=== PATIENT | female | born 1980 | race Caucasian/White ===

== ENCOUNTER 2021-12-11 18:54 | Emergency (ER) | payer OTHER, SELFPAY ==
[2021-12-11 19:11] VITALS: BP 165/85; PULSE 85; RESP 18; TEMP 37.7; O2SAT 98; BMI 36.6
[2021-12-11 19:55] LABS: MANUAL DIFF FLAG NO
[2021-12-11 19:57] LABS: Basophils Percent Auto 0.4 % (0-2); Eosinophils Absolute Auto 0.3 X10*3/uL (0.0-0.4); Eosinophils Percent Auto 2.6 % (0-4); Hematocrit 40.3 % (37.0-47.0); Hemoglobin 13.8 g/dl (12.0-16.0); Imm Gran Abs Auto 0.06 X10*3/uL (0.00-0.03); Imm Gran Pct Auto 0.6 % (0.0-0.4); Lymphocytes Absolute Auto 2.4 X10*3/uL (1.2-4.9); Lymphocytes Percent Auto 24.2 % (20-40); Mean Corpuscular HGB Conc 34.2 g/dl (31.0-35.0); Mean Corpuscular Hemoglobin 28.4 pg (27.0-33.0); Mean Corpuscular Volume 82.9 fL (80.0-98.0); Mean Platelet Volume 8.6 fL (9.4-12.3); Monocytes Absolute Auto 0.7 X10*3/uL (0.1-1.2); Monocytes Percent Auto 7.4 % (2-11); Neutrophils Absolute Auto 6.5 x10*3/uL (2.0-8.3); Neutrophils Percent Auto 64.8 % (45-73); Platelet Count 272 X10*3/uL (160-400); Red Blood Count 4.86 X10*6/uL (4.20-5.50); Red Cell Distribution Width 12.9 % (11.0-16.0)
[2021-12-11 20:06] LABS: Prothrombin Time 10.8 SEC (9.9-13.0)
[2021-12-11 20:11] LABS: Alanine Aminotransferase 16 U/L (0-31); Albumin Level 3.8 g/dL (3.5-5.0); Alkaline Phosphatase 84 U/L (39-117); Anion Gap 11 (12-20); Aspartate Amino Transferase 15 U/L (5-31); Bilirubin Total 0.2 mg/dL (0.0-1.0); Blood Urea Nitrogen 19 mg/dL (9-16); Calcium 9.3 mg/dL (8.4-10.2); Carbon Dioxide 27 mmol/L (22-29); Chloride 104 mmol/L (96-108); Creatinine Clr Calc Pharmacy 40.4; Estimated Glomerular Filt Rate 31; Glucose Fasting 125 mg/dL (60-99); Potassium 4.5 mmol/L (3.3-5.1); Sodium 137 mmol/L (135-145); Total Protein 7.5 g/dL (6.5-8.0)
--- NOTE | 2021-12-11 20:48 | ED.GENADULT ---
HPI - General Adult General Chief complaint: Extremity Injury, Lower Stated complaint: possible blood clot Time Seen by Provider: 12/11/21 20:48 Source: patient Mode of arrival: ambulatory Limitations: no limitations History of Present Illness HPI narrative: Patient is a 41 year old female presenting to the emergency department today with right ankle pain. Patient states that for the last few days she has had right ankle pain. Patient states that her PCP was concerned for gout or a blood clot and sent her here. Patient states that she has a history of gout in that same extremity. Patient denies any dizziness, lightheadedness, abdominal pain, nausea, vomiting, fever, chills, blurry vision, double vision, loss of vision, chest pain, difficulty breathing, shortness of breath, back pain, night sweats, pain with urination, increased urinary frequency, increased urinary urgency, blood in her urine or stool, syncope or a near syncopal episode, recent trauma or falls, bowel incontinence, bladder incontinence, bowel retention, bladder retention, or any other complaints at this time. Onset (ago): day(s) Location: lower extremity Radiation: non-radiation Severity: mild Severity scale (1-10): 3 Quality: dull Pain Consistency: constant Relieving factors: none Exacerbating factors: none Associated symptoms: denies other symptoms Treatments prior to arrival: none Related Data Home Medications Medication Instructions Recorded Confirmed gcguuwyqjy-ifwrvowuyqxlf-sdzgounu 1 - 2 tab PO DAILY PRN 12/11/21 12/11/21 50 mg-325 mg-40 mg tablet lisinopril 10 mg tablet 12.5 mg PO DAILY 12/11/21 12/11/21 Previous Rx's Medication Instructions Recorded naproxen 500 mg tablet 500 mg PO BID PRN 7 Days #14 tab 12/11/21 Allergies Allergy/AdvReac Type Severity Reaction Status Date / Time Iodinated Contrast Media Allergy Mild SWELLING Unverified 04/17/20 19:09 [IV CONTRAST] Review of Systems Constitutional: Constitutional: Reports no additional constitutional complaints, Denies chills, Denies fever(s) and Denies night sweats Eyes: Eyes: Reports no additional eye complaints, Denies blurry vision, Denies change in vision, Denies diplopia, Denies eye discharge, Denies loss of vision and Denies eye pain ENT: Denies dizziness Cardiovascular: Cardiovascular: Reports no additional cardiovascular complaints, Denies chest pain, Denies lightheadedness, Denies Loss of Consciousness and Denies dyspnea Respiratory: Respiratory: Reports no additional respiratory complaints and Denies dyspnea Gastrointestinal: Gastrointestinal: Reports no additional gastrointestinal complaints, Denies abdominal pain, Denies melena, Denies hematochezia, Denies change in bowel habits and Denies change in stool character Genitourinary: Genitourinary: Denies hematuria, Denies urinary frequency, Denies dysuria, Denies urinary incontinence, Denies urinary hesitancy and Denies urinary urgency Musculoskeletal: Musculoskeletal: Reports no additional musculoskeletal complaints, Denies numbness and Denies tingling Comments: right ankle pain Neurologic: Denies dizziness, Denies loss of vision, Denies numbness and Denies tingling Psychiatric: Psychiatric: Reports no additional psychiatric complaints Endocrine: Endocrine: Reports no additional endocrine complaints Hematologic/Lymphatic: Hematologic/Lymphatic: Reports no additional hematologic/lymphatic complaints Allergic/Immunologic: Allergic/Immunologic: Reports no additional allergic/immunologic complaints [facility] Past Medical History Attestation statement: The following information was validated with the patient. Source: old records reviewed Social History Social History Advance Directives: No Physical Exam ED Vital Signs: Vital Signs - 24 hr 12/11/21 19:11 Temperature 99.9 F Pulse Rate 85 Respiratory Rate 18 Blood Pressure 165/85 H Pulse Oximetry 98 BMI result Body Mass Index 36.6 Const General: cooperative, no acute distress, alert and awake Nutritional Appearance: well nourished Orientation/consciousness: patient oriented x3 Limitations: no limitations [facility] Head: Yes normal to inspection and Yes atraumatic Ears: hearing grossly normal bilaterally and external ears normal General nose exam: Normal external nose present, no nasal discharge noted and no epistaxis Face and sinus: Yes normal facial exam, No abrasion and No laceration Mouth: Normal oral and palatal mucosa present, no drooling and no muffled voice Eyes General: appearance normal, both eyes and all related structures Periorbital: periorbital findings normal Eyelids: Yes eyelids normal Conjunctivae: conjunctivae normal Pupils: Equal, round and reactive pupils present EOM: EOMs intact bilaterally Neck Neck: Yes normal visual inspection, Yes full ROM and Yes no lymphadenopathy Chest Chest palpation & inspection: normal inspection of the chest Resp Effort & Inspection: normal respiratory effort and able to speak in complete sentences Auscultation: clear to auscultation bilaterally GI Inspection: Yes normal to inspection Neuro General: patient oriented x3 and moves all extremities Cranial nerves: Yes Equal, round and reactive pupils present Cognition (Neuro): normal cognition Motor exam (neuro): 5/5 motor strength present throughout Sensory Exam: Normal double simultaneous stimulation for sensation Coordination: xklqek-fx-mffa test normal Extrem General: Yes normal to inspection, Yes full ROM and Yes capillary refill normal Psych Appearance: grossly normal Mental Status: mental status grossly normal Affect: normal affect Attitude: cooperative Thought process: Normal thought process present Thought content: Normal thought content present Insight: Good insight present (Psych) Medical Decision Making MDM Narrative Medical decision making narrative: Patient is a 41 year old female presenting to the emergency department today with right ankle pain. Patient's physical exam was unremarkable. Patient's blood work showed a slightly elevated creatinine but was otherwise normal. I explained my physical exam findings as well as all test results to the patient. I answered all questions asked by the patient. Patient received PO Indomethacin which she stated helped her symptoms significantly. Patient's clinical presentation was most consistent with an acute gout flare. There was no calf pain, redness, or swelling. I stressed the importance of the patient taking her medication as prescribed. I stressed the importance of the patient following up with her primary care provider. I stressed the importance of the patient returning to the emergency department immediately if her symptoms were to worsen or if she were to develop any dizziness, shortness of breath, difficulty breathing, chest pain, blurry vision, loss of vision, nausea, vomiting, abdominal pain, fever, chills, back pain, or any other complaints. Patient verbalized agreement and understanding with this treatment plan and discharge. Differential Diagnosis Differential Diagnosis: gout, sprain Medical Records Medical records reviewed: Yes I reviewed the patient's medical records. Lab Data Lab results reviewed: Yes I reviewed the patient's lab results. Result diagrams: 12/11/21 19:49 12/11/21 19:49 Labs: Lab Results 12/11/21 12/11/21 12/11/21 Range/Units 19:49 19:49 19:49 WBC 10.0 (4.8-10.8) X10*3/uL RBC 4.86 (4.20-5.50) X10*6/uL Hgb 13.8 (12.0-16.0) g/dl Hct 40.3 (37.0-47.0) % MCV 82.9 (80.0-98.0) fL MCH 28.4 (27.0-33.0) pg MCHC 34.2 (31.0-35.0) g/dl RDW 12.9 (11.0-16.0) % Plt Count 272 (160-400) X10*3/uL MPV 8.6 L (9.4-12.3) fL Immature Gran % (Auto) 0.6 H (0.0-0.4) % Neut % (Auto) 64.8 (45-73) % Lymph % (Auto) 24.2 (20-40) % Caroline % (Auto) 7.4 (2-11) % Eos % (Auto) 2.6 (0-4) % Baso % (Auto) 0.4 (0-2) % Lymph # (Auto) 2.4 (1.2-4.9) X10*3/uL Caroline # (Auto) 0.7 (0.1-1.2) X10*3/uL Eos # (Auto) 0.3 (0.0-0.4) X10*3/uL Baso # (Auto) 0.0 (0.0-0.2) X10*3/uL Abs Immat Gran (auto) 0.06 H (0.00-0.03) X10*3/uL Absolute Neuts (auto) 6.5 (2.0-8.3) x10*3/uL Absolute Nucleated RBC 0.000 (0.0-0.012) X10*3/uL Nucleated RBC % (auto) 0.0 (0.0-0.2) /100WBC PT 10.8 (9.9-13.0) SEC INR 1.0 (0.9-1.1) Sodium 137 (135-145) mmol/L Potassium 4.5 (3.3-5.1) mmol/L Chloride 104 (96-108) mmol/L Carbon Dioxide 27 (22-29) mmol/L Anion Gap 11 L (12-20) BUN 19 H (9-16) mg/dL Creatinine 1.81 H (0.5-1.4) mg/dL Estim Creat Clear Calc 40.4 Estimated GFR 31 Fasting Glucose 125 H (60-99) mg/dL Calcium 9.3 (8.4-10.2) mg/dL Total Bilirubin 0.2 (0.0-1.0) mg/dL AST 15 (5-31) U/L ALT 16 (0-31) U/L Alkaline Phosphatase 84 (39-117) U/L Total Protein 7.5 (6.5-8.0) g/dL Albumin 3.8 (3.5-5.0) g/dL Discharge Plan Discharge Clinical Impression: Gout Patient Disposition: Home, Self-Care Instructions: Gout (ED) Prescriptions: New naproxen 500 mg tablet 500 mg PO BID PRN (Reason: pain) 7 Days Qty: 14 0RF No Action azyqgeektp-qvvpgbehlnpvp-mabd 50-325-40 mg tablet 1 - 2 tab PO DAILY PRN (Reason: headache) 0RF lisinopril 10 mg Tablet 12.5 mg PO DAILY 0RF Referrals: [facility] [place] [facility] [place] Group] [facility] [place] [facility] [place] Group] [facility] [place] [facility] [place] Group] Stand Alone Forms: Work/School Release Print Language: Mexican
[2021-12-11] MEDS: Indomethacin 25 MG CAPSULE PO (22:56)
== END 2021-12-11 22:58 | disposition home or self-care (01) ==
PROVIDERS: Emergency Provider Student in an Organized Health Care Education/Training Program
DX: M10.9 Gout, unspecified (principal); R94.4 Abnormal results of kidney function studies
CPT/HCPCS: 36415; 80053; 85025; 85610; 99282; 99283

== ENCOUNTER 2024-07-10 05:32 | Inpatient (IN) | payer OTHER, SELFPAY ==
[2024-07-10] VITALS (14 sets, daily range): BP systolic 112–165; BP diastolic 54–92; PULSE 108–144; RESP 13–28; TEMP 36.4–37; O2SAT 96–100; BMI 37.7; BMI 39.7
--- NOTE | 2024-07-10 | ECG_ITS ---
Test Reason : SOB Blood Pressure : / mmHG Vent. Rate : 131 BPM Atrial Rate : 131 BPM P-R Int : 136 ms QRS Dur : 074 ms QT Int : 318 ms P-R-T Axes : 070 086 035 degrees QTc Int : 469 ms Sinus tachycardia Otherwise normal ECG No previous ECGs available Referred By: Generic ED Physician Electronically Signed By:LUDWIN HURTADO MD
--- NOTE | ~2024-07-10 | XR_ITS ---
EXAMINATION: XR CHEST CLINICAL INFORMATION: Cough. COMPARISON: None available. TECHNIQUE: Frontal view of the chest was obtained. FINDINGS: The lung volumes are low. There is no gross pneumothorax. Heart size is normal. Mild asymmetric elevation of the left lung base with small left pleural effusion. Mild streaky opacities in the lower left lung. Leads overlie the thorax. XR/XR chest 1V IMPRESSION: Mild asymmetric elevation of the left lung base with small left pleural effusion. Mild streaky opacities in the lower left lung. This study was presented today, July 10, 2024, for interpretation. Stat results provided at this time as requested by referring provider. Electronically signed by: Shraddha Haji MD 07/10/2024 09:58 AM [facility]
[2024-07-10 05:58] LABS: MANUAL DIFF FLAG NO
[2024-07-10 06:00] LABS: Basophils Percent Auto 0.4 % (0-2); Eosinophils Absolute Auto 0.2 X10*3/uL (0.0-0.4); Hematocrit 36.3 % (37.0-47.0); Hemoglobin 12.2 g/dl (12.0-16.0); Imm Gran Abs Auto 0.06 X10*3/uL (0.00-0.03); Imm Gran Pct Auto 0.6 % (0.0-0.4); Lymphocytes Absolute Auto 1.6 X10*3/uL (1.2-4.9); Lymphocytes Percent Auto 16.1 % (20-40); Mean Corpuscular HGB Conc 33.6 g/dl (31.0-35.0); Mean Corpuscular Hemoglobin 28.9 pg (27.0-33.0); Mean Platelet Volume 8.7 fL (9.4-12.3); Monocytes Absolute Auto 0.7 X10*3/uL (0.1-1.2); Monocytes Percent Auto 7.6 % (2-11); Neutrophils Absolute Auto 7.1 x10*3/uL (2.0-8.3); Neutrophils Percent Auto 73.3 % (45-73); Platelet Count 199 X10*3/uL (160-400); Red Blood Count 4.22 X10*6/uL (4.20-5.50); Red Cell Distribution Width 12.9 % (11.0-16.0); White Blood Count 9.7 X10*3/uL (4.8-10.8)
[2024-07-10 06:30] LABS: Alanine Aminotransferase 16 U/L (0-31); Albumin Level 3.8 g/dL (3.5-5.0); Alkaline Phosphatase 77 U/L (39-117); Anion Gap 14 (12-20); Aspartate Amino Transferase 18 U/L (5-31); Bilirubin Total 0.4 mg/dL (0.0-1.0); Blood Urea Nitrogen 28 mg/dL (9-16); Calcium 9.1 mg/dL (8.4-10.2); Carbon Dioxide 21 mmol/L (22-29); Chloride 106 mmol/L (96-108); Creatinine Clr Calc Pharmacy 30.7; Estimated Glomerular Filt Rate 23; Glucose Random 135 mg/dL (60-115); Potassium 3.8 mmol/L (3.3-5.1); Sodium 137 mmol/L (135-145); Total Protein 7.2 g/dL (6.5-8.0)
[2024-07-10 06:36] LABS: Influenza A PCR POSITIVE (Negative); Influenza B PCR NEGATIVE (Negative); Resp Syncy Virus RNA Qual PCR NEGATIVE (Negative); SARS COV2 PCR INHOUSE NEGATIVE (Negative)
--- NOTE | 2024-07-10 07:06 | ED_ITS ---
HPI - SOB/Dyspnea General Chief Complaint: Dyspnea Stated Complaint: SOB Time Seen by Provider: 07/10/24 07:01 Source: patient Mode of arrival: EMS Limitations: no limitations History of Present Illness HPI Narrative: This is a 43 years old patient with history of asthma presented to the emergency department via ambulance complaining of shortness a breath, symptoms started yesterday she is coughing wheezing. No fever no chills no vomiting MD elicited complaint: shortness of breath, cough and asthma attack Pertinent past history: asthma Onset (ago): day(s) (1) Timing: constant Severity: moderate Exacerbating factors: nothing Relieving factors: nothing Known history of: asthma Associated symptoms: denies other symptoms Related Data Home oxygen amount: none Home Medications ?Medication ?Instructions ?Recorded ?Confirmed levothyroxine 88 mcg tablet 88 mcg PO DAILY@0600 07/10/24 07/10/24 losartan 50 mg tablet 50 mg PO DAILY 07/10/24 07/10/24 pantoprazole 40 mg tablet,delayed 40 mg PO DAILY@0630 07/10/24 07/10/24 release vitamins no.119-iron 1 tab PO DAILY 07/10/24 07/10/24 fumarate 29 mg-folic acid 1 mg tablet (Se-Aniya-19) Allergies Allergy/AdvReac Type Severity Reaction Status Date / Time Iodinated Contrast Media Allergy Mild SWELLING Verified 07/10/24 07:18 [IV CONTRAST] shellfish derived Allergy Swelling Verified 07/10/24 07:18 Review of Systems 2 Constitutional: Constitutional: Reports no additional constitutional complaints ENT: Reports system reviewed and no additional complaints, except as documented [facility] Past Medical History [facility] Narrative: asthma Social History Social History Household Members: Spouse Housing: House Do you presently have visiting nurse or other home services: No Patient Tobacco Use Status: Never used Tobacco Smoked in Last 30 Days: No Use of substances other than those prescribed or required for medical reasons: No Have you been hit, kicked, punched, or otherwise hurt by someone within the past year? If so, by whom?: No Do you feel safe in your current relationship?: Yes Is there a partner from a previous relationship who is making you feel unsafe now?: No Are you made to feel afraid or neglected: No Christian Healthcare Practices: Rastafarian Advance Directives: No Advance Directives Information Provided: Yes Do you have a plan to hurt others: No Plan Recently lost weight without trying: No Nutrition Risks: Acute nausea or vomiting x1 week Patient : No : No Physical Exam 2 Vital Signs: Vital Signs: Last Vital Signs Temp 98.6 F 07/10/24 14:20 Pulse 115 H 07/10/24 15:28 Resp 20 07/10/24 15:28 BP 134/65 07/10/24 14:20 Pulse Ox 96 07/10/24 14:20 O2 Del Method Room Air 07/10/24 14:20 BMI result Body Mass Index 37.7 tachypneic Const: General: cooperative Nutritional Appearance: average body habitus Orientation/consciousness: patient oriented x3 HEENT: Head: Yes normal to inspection Face and sinus: Yes normal facial exam Neck: Neck: Yes normal visual inspection Chest: Chest palpation & inspection: normal inspection of the chest Resp: Auscultation: rhonchi and wheezes Cardio: Jugular venous distension: no JVD Rate: regular rate Rhythm: r egular rhythm GI: Inspection: Yes normal to inspection Palpation (GI): Soft to palpation, not firm and nontender Auscultation: normal bowel sounds Skin: General skin exam: no rashes or lesions noted and elasticity normal L esions: no lesions Rashes: no rashes Neuro: General: patient oriented x3 Cranial nerves: Yes CN's II-XII intact bilaterally Medications Administered Generic Name Dose Route Start Last Admin Trade Name Freq PRN Reason Stop Dose Admin Albuterol Sulfate 2.5 mg 07/10/24 12:00 07/10/24 15:28 Albuterol Sulfate (0.083%) 2.5 Mg/3 Ml Vial.Neb INHALE 2.5 mg RQ4H WHILE AWAKE CHANELLE Administration Heparin Sodium (Porcine) 5,000 unit 07/10/24 12:15 07/10/24 14:33 Heparin Sodium,Porcine 5,000 Unit/Ml Vial SUBCUT 5,000 unit Q12H CHANELLE Administration Lactated Ringer's 1,000 mls @ 100 mls/hr 07/10/24 12:15 07/10/24 12:11 Lr IVCONT 100 mls/hr .Q10H CHANELLE Administration Discontinued Medications Generic Name Dose Route Start Last Admin Trade Name Freq PRN Reason Stop Dose Admin Albuterol Sulfate 2.5 mg/ 0 mg 07/10/24 07:41 07/10/24 07:45 Albuterol/Ipratropium 3 ml INHALE 07/10/24 07:42 5 dose ONCE ONE Administration Sodium Chloride 1,000 mls @ 999 mls/hr 07/10/24 07:15 07/10/24 09:20 Ns IVCONT 07/10/24 08:15 Infused .Q1H1M CHANELLE Infusion Methylprednisolone Sodium Succinate 125 mg 07/10/24 07:06 07/10/24 07:18 Methylprednisolone Sod Succ 125 Mg/2 Ml Vial IVPUSH 07/10/24 07:07 125 mg ONCE ONE Administration Ondansetron HCl 4 mg 07/10/24 08:28 07/10/24 08:34 Ondansetron Hcl 4 Mg/2 Ml Vial IVPUSH 07/10/24 08:29 4 mg ONCE ONE Administration Oseltamivir Phosphate 75 mg 07/10/24 08:17 07/10/24 08:26 Oseltamivir Phosphate 75 Mg Capsule PO 07/10/24 08:18 75 mg ONCE ONE Administration Medical Decision Making Medical Decision Making [facility] Narrative: pt presented with wheezing will give her nebs /steroid Differential Diagnosis Differential Diagnoses: The differential diagnosis associated with the presentation includes asthma ex/pneumonia/bronchitis Admission/Observation Consideration of admission/observation: Escalation of care including admission/observation considered Lab Data 07/10/24 05:51 07/10/24 05:51 Labs: Lab Results 07/10/24 Range/Units 05:51 WBC 9.7 (4.8-10.8) X10*3/uL RBC 4.22 (4.20-5.50) X10*6/uL Hgb 12.2 (12.0-16.0) g/dl Hct 36.3 L (37.0-47.0) % MCV 86.0 (80.0-98.0) fL MCH 28.9 (27.0-33.0) pg MCHC 33.6 (31.0-35.0) g/dl RDW 12.9 (11.0-16.0) % Plt Count 199 D (160-400) X10*3/uL MPV 8.7 L (9.4-12.3) fL Immature Gran % (Auto) 0.6 H (0.0-0.4) % Neut % (Auto) 73.3 H (45-73) % Lymph % (Auto) 16.1 L (20-40) % Rolette % (Auto) 7.6 (2-11) % Eos % (Auto) 2.0 (0-4) % Baso % (Auto) 0.4 (0-2) % Lymph # (Auto) 1.6 (1.2-4.9) X10*3/uL Rolette # (Auto) 0.7 (0.1-1.2) X10*3/uL Eos # (Auto) 0.2 (0.0-0.4) X10*3/uL Baso # (Auto) 0.0 (0.0-0.2) X10*3/uL Abs Immat Gran (auto) 0.06 H (0.00-0.03) X10*3/uL Absolute Neuts (auto) 7.1 (2.0-8.3) x10*3/uL Absolute Nucleated RBC 0.000 (0.0-0.012) X10*3/uL Nucleated RBC % (auto) 0.0 (0.0-0.2) /100WBC Sodium 137 (135-145) mmol/L Potassium 3.8 (3.3-5.1) mmol/L Chloride 106 (96-108) mmol/L Carbon Dioxide 21 L (22-29) mmol/L Anion Gap 14 (12-20) BUN 28 H (9-16) mg/dL Creatinine 2.37 H (0.5-1.4) mg/dL Estim Creat Clear Calc 30.7 Estimated GFR 23 Random Glucose 135 H (60-115) mg/dL Calcium 9.1 (8.4-10.2) mg/dL Total Bilirubin 0.4 (0.0-1.0) mg/dL AST 18 (5-31) U/L ALT 16 (0-31) U/L Alkaline Phosphatase 77 (39-117) U/L Total Protein 7.2 (6.5-8.0) g/dL Albumin 3.8 (3.5-5.0) g/dL Influenza Type A (PCR) POSITIVE A (Negative) Influenza Type B (PCR) NEGATIVE (Negative) RSV RNA Qual (PCR) NEGATIVE (Negative) SARS-CoV-2 RNA (RT-PCR) NEGATIVE (Negative) Discharge Plan Discharge Clinical Impression: Influenza, DACIA (acute kidney injury) Asthma with exacerbation Qualifiers: Asthma severity: moderate Asthma persistence: persistent Qualified Code(s): J 45.41 - Moderate persistent asthma with (acute) exacerbation Patient Disposition: Admitted As Inpatient
[2024-07-10] MEDS: methylPREDNISolone Sod Succ 125 MG/2 ML VIAL IVPUSH (07:18)
[2024-07-10] MEDS: 0.9 % Sodium Chloride 1,000 ML 999 ML IVCONT (07:18)
[2024-07-10] MEDS: Albuterol Sulfate 2.5 MG, Albuterol/Iprat 2.5/0.5MG 3 ML 3 ML INHALE (07:45)
[2024-07-10] MEDS: Oseltamivir Phosphate 75 MG CAPSULE PO (08:26)
[2024-07-10] MEDS: ondansetron HCL 4 MG/2 ML VIAL IVPUSH (08:34)
--- NOTE | 2024-07-10 11:02 | PM.IMHP ---
History of Present Illness Date of Service: 07/10/24 Attending physician on admission: Queta Orozco Chief Complaint: dyspnea, cough 43 yo female with PMH of HTN, kidney disease- proteinuria (sees Dr. Castellano for this), hypothyroidism, and seasonal asthma who presents for worsening shortness of breath, increased work of breathing and cough. Her symptoms started yesterday but she realized that her inhaler had been , so she tried to rest instead to avoid increasing any shortness of breath. States overnight her symptoms became worse and had a coughing fit, says she became increasingly anxious which made everything worse and it prompted her mor to call EMS. Indicates a potential sick contact, mor's 4 yo daughter was over this weekend with a cough. Denies any fevers, chills, N/V/D, or CP, but endorses palpitations when she is having coughing fits or with steroid medicines. Cough is non productive, denies hemoptysis, diaphoresis, or edema. Review of Systems Constitutional: Comments: Denies fatigue, unintentional weight loss, denies fever, chills, N/V/D. Denies changes to sleep. ENT: Comments: Denies headache, changes to vision or hearing, and denies vertigo, rhinorrhea, or sore throat. Endorses chest congestion Cardiovascular: Comments: Endorses symptomatic palpitations with coughing attacks. Denies lightheadedness, diaphoresis, orthopnea, edema, or CP Respiratory: Comments: Endorses non-productive cough, dyspnea, and wheeze. Denies hemoptysis, or pleuritic pain Gastrointestinal: Comments: denies N/V/D, denies bowel changes or constipation, no changes to appetite, and denies any bleeding Genitourinary: Comments: denies any urinary changes or difficulties, denies frequency, urgency, retention, pain/burning, or hematuria Musculoskeletal: Comments: denies back pain, or swelling of any joints, denies any recent falls Integumentary/Breasts: Comments: denies any rashes, itching, dryness, color changes, wounds Neurologic: Comments: denies seizures, dizziness, syncope/fainting, numbness/tingling or tremors Psychiatric: Comments: Denies anxiety, depression, or any changes to memory Endocrine: Comments: denies temperature intolerances, sweating, polyuria/dipsia, or bleeding. [facility] Social History Household Members: Spouse Housing: House Do you presently have visiting nurse or other home services: No Patient Tobacco Use Status: Never used Tobacco Use of substances other than those prescribed or required for medical reasons: No Have you been hit, kicked, punched, or otherwise hurt by someone within the past year? If so, by whom?: No Do you feel safe in your current relationship?: Yes Is there a partner from a previous relationship who is making you feel unsafe now?: No Are you made to feel afraid or neglected: No [facility] Practices: Holiness Advance Directives: No Advance Directives Information Provided: Yes Do you have a plan to hurt others: No Plan Recently lost weight without trying: No Patient : No : No Meds Allergies Allergy/AdvReac Type Severity Reaction Status Date / Time Iodinated Contrast Media Allergy Mild SWELLING Verified 07/10/24 07:18 [IV CONTRAST] shellfish derived Allergy Swelling Verified 07/10/24 07:18 Active Medications: Current Medications Acetaminophen (Acetaminophen 325 Mg Tablet) 650 mg PO Q6H PRN PRN Reason: Pain, Mild (Pain Scale 1-3), fever or headache Albuterol Sulfate (Albuterol Sulfate (0.083%) 2.5 Mg/3 Ml Vial.Neb) 2.5 mg INHALE RQ4H WHILE AWAKE CHANELLE Calcium Carbonate (Calcium Carbonate 750 Mg Tab.Chew) 750 mg PO Q4H PRN PRN Reason: Heartburn Magnesium Hydroxide (Milk Of Magnesia 30 Ml Oral.Susp) 30 ml PO DAILY PRN PRN Reason: Constipation Melatonin (Melatonin 3 Mg Tablet) 6 mg PO BEDTIME PRN PRN Reason: Insomnia Methylprednisolone Sodium Succinate (Methylprednisolone Sod Succ 40 Mg/Ml Vial) 40 mg IVPUSH Q12H [facility] Sodium Chloride (0.9 % Sodium Chloride Flush 3 Ml Syringe) 3 ml IVFLUSH QSHIFT [facility] Home Medications ?Medication ?Instructions ?Recorded ?Confirmed ?Last Taken ?Type levothyroxine 88 mcg tablet 88 mcg PO DAILY@0600 07/10/24 07/10/24 07/09/24 History losartan 50 mg tablet 50 mg PO DAILY 07/10/24 07/10/24 07/09/24 History pantoprazole 40 mg tablet,delayed 40 mg PO DAILY@0630 07/10/24 07/10/24 07/09/24 History release vitamins no.119-iron 1 tab PO DAILY 07/10/24 07/10/24 07/09/24 History fumarate 29 mg-folic acid 1 mg tablet (Se-Aniya-19) Physical Exam Vital Signs and Narrative: Vital Signs: Last Vital Signs Temp 98.6 F 07/10/24 09:34 Pulse 124 H 07/10/24 09:34 Resp 20 07/10/24 09:34 BP 141/61 H 07/10/24 09:34 Pulse Ox 97 07/10/24 09:34 O2 Del Method Room Air 07/10/24 09:34 BMI result Body Mass Index 37.7 Const: General: cooperative, no acute distress, alert and awake Nutritional Appearance: obese Orientation/consciousness: patient oriented x3 Limitations: physical limitations (SOB OE) HEENT: Head: Yes normal to inspection Ears: hearing grossly normal bilaterally General nose exam: Normal external nose present Mouth: moist mucous membranes Eyes: General: appearance normal, both eyes and all related structures Pupils: Equal, round and reactive pupils present EOM: EOMs intact bilaterally Neck: Yes normal visual inspection and Yes full ROM Resp: Effort & Inspection: able to speak in complete sentences and tachypneic Auscultation: clear to auscultation bilaterally and wheezes expiratory wheezes, upper bilaterally and posterior Cardio: Jugular venous distension: no JVD Rate: tachycardic Rhythm: regular rhythm Heart sounds: S1 normal heart sound present and S2 normal heart sound present Peripheral pulses: dorsalis pedis present GI: Inspection: Yes normal to inspection Auscultation: normal bowel sounds : General: Yes no CVA tenderness Back/Spine/Pelvis: Back: no CVA tenderness Skin: General skin exam: no rashes or lesions noted, elasticity normal and turgor normal Wounds: no wounds Neuro: General: patient oriented x3 Cranial nerves: Yes CN's II-XII intact bilaterally, Yes Equal, round and reactive pupils present and Yes Bilaterally intact EOM present Cognition (Neuro): normal cognition Motor exam (neuro): 5/5 motor strength present throughout Psych: Appearance: grossly normal Mental Status: mental status grossly normal Speech and movement: Normal speech and movement present Affect: normal affect Attitude: cooperative Thought process: Normal thought process present Results Labs 07/10/24 05:51 07/10/24 05:51 Labs: Laboratory Results - last 24 hr 07/10/24 05:51 MCV 86.0 MCH 28.9 MCHC 33.6 RDW 12.9 Plt Count 199 D MPV 8.7 L Immature Gran % (Auto) 0.6 H Neut % (Auto) 73.3 H Lymph % (Auto) 16.1 L [place] % (Auto) 7.6 Eos % (Auto) 2.0 Baso % (Auto) 0.4 Lymph # (Auto) 1.6 [place] # (Auto) 0.7 Eos # (Auto) 0.2 Baso # (Auto) 0.0 Abs Immat Gran (auto) 0.06 H Absolute Neuts (auto) 7.1 Absolute Nucleated RBC 0.000 Nucleated RBC % (auto) 0.0 Anion Gap 14 Estim Creat Clear Calc 30.7 Estimated GFR 23 Random Glucose 135 H Calcium 9.1 Total Bilirubin 0.4 AST 18 ALT 16 Alkaline Phosphatase 77 Total Protein 7.2 Albumin 3.8 Influenza Type A (PCR) POSITIVE A Influenza Type B (PCR) NEGATIVE RSV RNA Qual (PCR) NEGATIVE SARS-CoV-2 RNA (RT-PCR) NEGATIVE Imaging Radiologist's Impressions: Impressions Chest X-Ray 07/10/24 07:05 IMPRESSION: Mild asymmetric elevation of the left lung base with small left pleural effusion. Mild streaky opacities in the lower left lung. This study was presented today, July 10, 2024, for interpretation. Stat results provided at this time as requested by referring provider. Electronically signed by: Shraddha Haji MD 07/10/2024 09:58 AM [facility] Assessment and Plan (1) DACIA (acute kidney injury): Status: Acute (2) Influenza: Status: Acute (3) Asthma with exacerbation: Qualifiers: Asthma persistence: persistent Asthma severity: moderate Qualified Code(s): J45.41 - Moderate persistent asthma with (acute) exacerbation Status: Acute Plan 43 yo female with PMH of HTN, kidney disease- proteinuria (sees Dr. Castellano), hypothyroidism, and seasonal asthma who presents for worsening shortness of breath, increased work of breathing and non-productive cough. Influenza A+ tamiflu, renally dosed antipyretics PRN hydration encouraged Acute asthma exacerbation secondary to influenza CXR showed Mild asymmetric elevation of the left lung base with small left pleural effusion. Mild streaky opacities in the lower left lung. EKG, sinus tachycardia Oxygen supplementation as required, goal >90% Bronchodilators. Solumedrol DACIA hx of proteinuria ? hypovolemia IVF resuscitation check ua nephro consultation Hypothyroidism continue levothyroxine HTN hold losartan for DACIA Obesity, morbid 37.7 Discussed importance of weight management as this may be contributing to worsening of other comorbidities Code status: Full DVT: heparin subcu Quality Stroke Does the patient have a stroke diagnosis?: No VTE Prior VTE?: No VTE Risk Level:: Medical - moderate - high VTE Device Contraindication: Treatment Not Indicated VTE Drug Contraindication: N/A - Med Ordered
[2024-07-10] MEDS: Lactated Ringers 1,000 ML 100 ML IVCONT ×2 (12:11→22:10)
--- NOTE | 2024-07-10 12:36 | PHA.MEDREC ---
Pharmacy Consult ? Medication Reconciliation Pharmacy has completed the medication reconciliation, spoke to patient at bedside to confirm all medications. Patient named off first two meds and confirmed pantoprazole and a vitamin when prompted with the name, also stated she takes nothing OTC, last took yesterday on 07/09.
[2024-07-10] MEDS: Albuterol Sulfate (0.083%) 2.5 MG/3 ML VIAL.NEB INHALE ×3 (13:01→19:05)
[2024-07-10] MEDS: Heparin Sodium,Porcine 5,000 UNIT/ML VIAL 5000 UNIT SUBCUT ×2 (14:33→23:58)
[2024-07-10 14:55] LABS: Appearance Urine Clear; Color Urine Yellow; Glucose Urine UA 100 mg/dL (Negative); Leukocyte Esterase Urine Small (1+) (Negative); Nitrite Urine Negative (Negative); PH 5.5 (5.0-9.0); UMIC TRIGGER UACC YES; Urine Blood Trace (Negative); Urine Ketones Trace mg/dL (Negative); Urine Protein >=1000 (4+) mg/dL (Neg-Trace)
[2024-07-10 15:04] LABS: Bacteria Urine Trace (None Seen); RBC Urine 0-2 /HPF (0-2); UACC Culture Trigger YES; WBC Urine 21-50 /HPF (0-5)
[2024-07-10] MEDS: 0.9 % Sodium Chloride Flush 3 ML SYRINGE IVFLUSH ×2 (17:15→22:12)
[2024-07-10] MEDS: Acetaminophen 325 MG TABLET 650 MG PO (20:11)
[2024-07-10] MEDS: Oseltamivir Phosphate 30 MG CAPSULE PO (20:34)
[2024-07-11 04:00] VITALS: BP 135/64; PULSE 98; RESP 18; TEMP 37.3; O2SAT 97
[2024-07-11] MEDS: Levothyroxine Sodium 88 MCG TABLET PO (06:16)
[2024-07-11 07:16] LABS: Anion Gap 14 (12-20); Blood Urea Nitrogen 32 mg/dL (9-16); Carbon Dioxide 19 mmol/L (22-29); Chloride 110 mmol/L (96-108); Creatinine Clr Calc Pharmacy 33.4; Estimated Glomerular Filt Rate 24; Glucose Random 117 mg/dL (60-115); Potassium 4.6 mmol/L (3.3-5.1); Sodium 138 mmol/L (135-145)
[2024-07-11 08:00] VITALS: BP 133/67; PULSE 103; RESP 18; TEMP 36.6; O2SAT 97
[2024-07-11] MEDS: Albuterol Sulfate (0.083%) 2.5 MG/3 ML VIAL.NEB INHALE ×2 (08:03→11:31)
[2024-07-11 08:05] VITALS: PULSE 104; RESP 18; O2SAT 97
[2024-07-11] MEDS: Lactated Ringers 1,000 ML 100 ML IVCONT (08:36)
[2024-07-11] MEDS: Oseltamivir Phosphate 30 MG CAPSULE PO (08:38)
[2024-07-11] MEDS: methylPREDNISolone Sod Succ 40 MG/ML VIAL IVPUSH (08:38)
[2024-07-11] MEDS: guaiFENesin DM 200/20/10 ML 10 ML SYRUP PO (08:38)
--- NOTE | 2024-07-11 09:49 | PM.DS ---
DS: Providers Provider Date of Service: 07/11/24 Date of admission: 07/10/24 09:40 Date of discharge: 07/11/24 Primary care physician: Pedro Del Castillo PA-C DS: Diagnosis Discharge Diagnosis (1) DACIA (acute kidney injury): Status: Acute (2) Influenza: Status: Acute (3) Asthma with exacerbation: Status: Acute DS: Summary Hospital Course Hospital Course: History and physical as per admitting provider. 43 yo female with PMH of HTN, kidney disease- proteinuria (sees Dr. Castellano for this), hypothyroidism, and seasonal asthma who presents for worsening shortness of breath, increased work of breathing and cough. Her symptoms started yesterday but she realized that her inhaler had been , so she tried to rest instead to avoid increasing any shortness of breath. States overnight her symptoms became worse and had a coughing fit, says she became increasingly anxious which made everything worse and it prompted her mor to call EMS. Indicates a potential sick contact, mor's 4 yo daughter was over this weekend with a cough. Denies any fevers, chills, N/V/D, or CP, but endorses palpitations when she is having coughing fits or with steroid medicines. Cough is non productive, denies hemoptysis, diaphoresis, or edema. 43-year-old woman treated for acute asthma exacerbation secondary to influenza A. Chest x-ray did not know any consolidation or effusion. EKG showed sinus rhythm. Patient did not require any oxygen. Treated with bronchodilators and IV steroids and Tamiflu that was renally dosed. She was also noted to have mild DACIA with a history of proteinuria. Patient reports last creatinine in May was 2.31 so she appears to be at her baseline at this time. She should follow up with her Nephrology as needed. Plan is to discharge home on short prednisone taper and to complete Tamiflu. Hypothyroidism. Continue levothyroxine Hypertension. Continue losartan Obesity. BMI 37.7. Discussed importance of weight management as this may be contributing to worsening of other comorbidities Time Attestation Discharge Coordination Time (in mins): 40 Quality: Safe Use of Opioids Does Pt have an Active Cancer Diagnosis on the Problem List?: No Quality: Stroke Does the patient have a stroke diagnosis?: No Physical Exam Vital Signs: Vital Signs: Last Vital Signs Temp 97.8 F 07/11/24 08:00 Pulse 104 H 07/11/24 08:05 Resp 18 07/11/24 08:05 BP 133/67 07/11/24 08:00 Pulse Ox 97 07/11/24 08:00 O2 Del Method Room Air 07/11/24 08:00 BMI result Body Mass Index 39.7 Appearing in no acute distress head is normocephalic atraumatic eyes pupils are PERRLA sclera is anicteric mouth throat mucous membranes are intact and moist neck is supple no lymphadenopathy, no JVD noted lung sounds are clear to auscultation heart regular rate rhythm, clear S1, S2 positive bowel sounds, abdomen is soft, nontender neuro patient is alert x3, no focal deficits DS: Data Data Completed and Pending Labs on day of discharge: Laboratory Results - last 24 hr 07/10/24 07/11/24 14:47 05:43 Hold Purple Top SEE NOTE Sodium 138 Potassium 4.6 D Chloride 110 H Carbon Dioxide 19 L Anion Gap 14 BUN 32 H Creatinine 2.24 H Estim Creat Clear Calc 33.4 Estimated GFR 24 Random Glucose 117 H Calcium 9.0 Urine Color Yellow Urine Appearance Clear Urine pH 5.5 Ur Specific [place] 1.020 Urine Protein >=1000 (4+) H Urine Glucose (UA) 100 H Urine Ketones Trace Urine Blood Trace H Urine Nitrite Negative Ur Leukocyte Esterase Small (1+) H Urine RBC 0-2 Urine WBC 21-50 H Ur Squamous Epith Cells 6-10 Urine Bacteria Trace Hyaline Casts 6-10 Discharge Plan Discharge Anticipated Discharge Date/Time: 07/11/24 09:44 Patient Disposition: Home, Self-Care Discharge Diagnosis: Acute asthma exacerbation Influenza a Referrals: Pedro Del Castillo PA-C [Primary Care Provider] - 1 Week Discharge Medications: New prednisone 10 mg tablet See Taper PO DIRECTED Qty: 20 0RF Taper: Prednisone 40 mg daily for 2 Days and 0 Hour 30 mg daily for 2 Days and 0 Hour 20 mg daily for 2 Days and 0 Hour 10 mg daily for 2 Days and 0 Hour Rx Instructions: see taper instructions albuterol sulfate [Ventolin HFA] 90 mcg/actuation HFA aerosol inhaler 1 inh inhalation QID PRN (Reason: shortness of breath or wheezing) Qty: 6.7 0RF oseltamivir [Tamiflu] 30 mg capsule 30 mg PO BID 4 Days Qty: 8 0RF albuterol sulfate 2.5 mg /3 mL (0.083 %) solution for nebulization 2.5 mg inhalation Q4H PRN (Reason: bronchospasm) Qty: 180 0RF Continued losartan 50 mg tablet 50 mg PO DAILY levothyroxine 88 mcg tablet 88 mcg PO DAILY@0600 pantoprazole 40 mg tablet,delayed release (DR/EC) 40 mg PO DAILY@0630 Se--19 29 mg iron- 1 mg tablet 1 tab PO DAILY Discontinued albuterol 90 mcg/actuation Aerosol INHALATION PRN (Reason: Shortness Of Breath) Discharge Orders: Discharge Order (Routine); Ordered 07/11/24 Ordered By: Queta Orozco Diet: Advance to usual diet Activity on Discharge: As tolerated Stand Alone Forms: Patient Portal Discharge page, Work/School Release Print Language: Gabonese Care Plan Goals: Complete steroid taper Health Concerns: Acute asthma exacerbation Influenza a Plan of Treatment: Follow-up with primary care provider as needed Take all medications as prescribed Assessment: See discharge summary Patient Instructions: Influenza (DC) Discharge Date/Time: 07/11/24 12:41
[2024-07-11 11:33] VITALS: PULSE 105; RESP 16; O2SAT 97
--- NOTE | 2024-07-11 12:26 | MHC.CM.PN ---
Patient was discharged to home self care today. She arranged for transportation home. The patient was discharged prior to being seen by case management.
--- NOTE | 2024-07-11 12:29 | P.CDIM_ITS ---
PROVIDER RESPONSE TEXT: To clarify, the appropriate diagnosis supported by the clinical indicators: Mild intermittent QUERY TEXT: PHYSICIAN'S DOCUMENTATION REQUEST Date of Query: 07/11/2024 09:57 AM EST Patient Name: Catherine Hardy Admit Date: 07/10/2024 Dear Queta Orozco ORDER MANAGER, A review of the medical record indicates additional documentation may be needed. Please review below and update the documentation accordingly. Clinical indicators: Acute asthma exacerbation secondary to influenza A+ Oxygen supplementation as required Bronchodilators. Solumedrol. Based on the above, please clarify in the Progress Notes further specificity regarding the type of as thma exacerbation within the body of the written Plan: Mild intermittent Mild persistent Moderate persistent Severe persistent Other (explain) Clinically unable to determine (explain) Thank you, Mica Brock, CCS, CDIS Use of terms such as suspected, likely, concern for, or probable (associated with a specific diagnosi s that is being evaluated, monitored, or treated as if it exists) are acceptable and can be coded in the inpatient se tting, when documented at the time of discharge. Please use your independent medical judgment in providing your response. THIS QUERY IS PART OF THE PERMANENT MEDICAL RECORD
--- OUTSIDE RECORDS SUMMARY | 2024-07-11 18:32 | XMS_ITS | Data Portability ---
Author Organization LEO Gunn [facility], [address] Address [address] [place] [address] Care Team Providers [employer] Name Role Phone JOSE HURST Primary Care Provider Assessment No assessment recorded. Plan of Treatment Reminders Order Date Submit Date Provider Last Modified By Organization Details Last Modified Time Details Appointments None recorded. Lab rapid strep group A, throat 2022 023 [place] [address] [facility], [address] [place] [address], [phone], 3 11:46:55 rapid SARS CoV 2 Ag, QL IA, respiratory specimen 2022 023 [place] [address] [facility], [address] [place] [address], [phone], 3 13:57:21 Referral None recorded. Procedures None recorded. Surgeries None recorded. Imaging None recorded. Medication Orders albuterol sulfate 2.5 mg/3 mL (0.083 %) solution for nebulizatio n 2022 023 [facility]ANY [id number], [address], [place], [phone], 3 11:47:10 amoxicillin 875 mg-potassiu m clavulanate 125 mg tablet [email or web address] [place] [address] [facility] #[id number], [address], [place], [phone], 3 14:38:04 benzonatate 100 mg capsule 2022 023 [email or web address] [facility] #50261, [address] [place], [place], [phone], 3 13:30:19 prednisone 20 mg tablet 2022 023 [email or web address] [facility] #88625, [address] [place], [place], [phone], 3 13:30:28 Patient TargetsNo targets recorded. Patient Instructions Encounter Date Encounter Id Patient Instructions Last Modified By Organization Details Last Modified Time 09/07/2022 [id number] Acute bronchitis is a common clinical condition characterized by an acute onset but persistent cough, with or without sputum production. It is typically self-limited, resolving within one to three weeks. Symptoms result from inflammation of the lower respiratory tract and are most frequently due to viral infection. Treatment is focused on patient education and supportive care. Antibiotics are not needed for the great majority of patients with acute bronchitis but are greatly overused for this condition. Reducing antibiotic use for acute bronchitis is a national and international health care priority. In most patients, the cough persists for 1 to 3 weeks, with a average duration of 18 days. The cough may be associated with either purulent or nonpurulent sputum production The presence of purulent sputum is a nonspecific finding and does not appear to be predictive of bacterial infection or that antibiotics are needed. For the great majority of patients, use of antibiotics does not hasten recovery or prevent complications but puts patients at increased risk of adverse effects including potentially severe complications such as Clostridioides difficile infection and anaphylaxis. Non-Pharmacological treatment for coughin. Throat lozenges 2. Hot tea 3. Honey 4. Smoking cessation 5. Avoidance of secondhand smoke. Pharmacological Treatment: 1. Robatussin or Guafenasin 2. Antihistamines 3. Dextromethoraphen I would plan on being seen again if any of the following symptoms develop: 1. Fever (100.5) 2. Shortness of breath 3. Wheezing 4. Worsening Cough. I would go to the ER if you develop: 1. Severe Shortness of breath 2. Chest Pain 3. Wheezing 4. Coughing up Blood Not available 09/07/2022 11:46:40 10/16/2022 [id number] cough: care instructions [email or web address] Not available 10/16/2022 16:04:55 Reason for Referral None Reported. Results Created Date Observation Date Name Description Value Unit Range Abnormal Flag Note LastModifiedBy Organization Detail LastModifiedTime 09/07/19 23 09/07/2022 rapid strep group A, throa t Unknown Analyte Normal = Negati ve Not Available [address] [place] [address], [phone], 09/07/2022 11:13:52 09/07/1909/07/2022 rapid strep group A, throa t Unknown Analyte negati ve Not Available [address] [place] [address], [phone], 09/07/2022 11:13:52 11/15/19 23 11/14/2022 rapid SARS CoV 2 Ag, QL IA, respi rator y speci men Unknown Analyte Normal =Negat haris Not Available [address] [place] [address], [phone], 11/14/2022 13:31:23 11/15/19 23 11/14/2022 rapid SARS CoV 2 Ag, QL IA, respi rator y speci men Unknown Analyte negati ve Not Available [address] [place] [address], [phone], 11/14/2022 13:31:23 Result Notes None recorded. Problems Name Problem SNOMED Code Status Onset Date Resolution Date Notes Provider Name and Address Organization Details Recorded Time Asthma 906854324 Active 2022 [facility] 3 11:16:30 Hypothyroidism 52584713 Active 2022 [facility] 3 11:16:36 Proteinuria 02333411 Active 2022 [facility] 3 11:16:46 Gastroesophage al reflux disease 543067564 Active 2022 LE[facility] 3 11:17:01 Problem Notes None recorded. Medical Equipment None Reported. Allergies Allergen ID Allergen Name Allergen Category Reaction Reaction Severity Criticality Documentation Date Start Date Code Code System Note Provider Name and Address Organization Details Recorded Time 410557 iodine medicatio n itching Not available Not available 09/07/2022 5933 RxNorm LEO Marro[facility] 3 11:14:59 Medications Name Sig Start Date Stop Date Status Note LastModified by Organization Details LastModified Time prednisone 10 mg tablet 09/07 completed Not Available Not Available Not Available albuterol sulfate 2.5 mg/3 mL (0.083 %) solution for nebulizatio n USE 3 ML VIA NEBULIZER EVERY 4 HOURS active Not Available Not Available No t Available prednisone 20 mg tablet TAKE 3 TABLETS BY MOUTH EVERY DAY IN THE MORNING FOR 5 DAYS 11/14 completed Not Available Not Available Not Available sumatriptan 50 mg tablet TAKE 1 TABLET BY MOUTH 2 HOURS BETWEEN DOSES NEEDED active Not Available Not Available No t Available topiramate 25 mg tablet TAKE 1 TABLET BY MOUTH AT BEDTIME active Not Available Not Available No t Available butalbital- acetaminoph en-caffeine 50 mg-325 mg-40 mg tablet TAKE 1 TO 2 TABLETS BY MOUTH EVERY DAY NEEDED FOR HEADACHE 09/07 completed Not Available Not Available Not Available levothyroxi ne 25 mcg tablet TAKE 1 TABLET BY MOUTH DAILY active Not Available Not Available No t Available benzonatate 100 mg capsule TAKE 1 CAPSULE BY MOUTH EVERY DAY AT BEDTIME FOR 7 DAYS 11/14 completed Not Available Not Available Not Available pantoprazol e 40 mg tablet,ezekiel yed release TAKE 1 TABLET BY MOUTH DAILY active Not Available Not Available No t Available losartan 25 mg tablet TAKE 1/2 TABLET BY MOUTH DAILY active Not Available Not Available No t Available albuterol sulfate HFA 90 mcg/actuati on aerosol inhaler INHALE 2 PUFFS INTO THE LUNGS FOUR TIMES DAILY NEEDED FOR COUGH OR WHEEZING active Not Available Not Available No t Available naproxen 500 mg tablet TAKE 1 TABLET BY MOUTH TWICE DAILY FOR 7 DAYS NEEDED FOR PAIN 09/07 completed Not Available Not Available Not Available amoxicillin 875 mg-luca orantes clavulanate 125 mg tablet TAKE 1 TABLET BY MOUTH TWICE DAILY FOR 7 DAYS 10/16 completed Not Available Not Available Not Available ProChamber USE DIRECTED active Not Available Not Available No t Available BinaxNOW COVID-19 Ag Self Test kit FOLLOW PACKAGE DIRECTION S 10/16 completed Not Available Not Available Not Available Vitals Date Recorded Body height Body mass index (BMI) Body weight Oxygen saturation Oxygen saturation in Arterial blood by Pulse oximetry Heart rate Respiratory rate Body temperature Systolic blood pressure Diastolic blood pressure Provider Name and Address Organization Details Last Updated DateTime 3 152.4 cm 35.2 kg/m2 42601.6 3 g 98 % 98 % 86 /min 20 /min 98.3 [degF] 138 mm[Hg] 92 mm[Hg] Terra BAILEY - [facility] 3 14:40:11 Date Recorded Body height Body mass index (BMI) Body weight Respiratory rate Oxygen saturation Oxygen saturation in Arterial blood by Pulse oximetry Heart rate Body temperature Systolic blood pressure Diastolic blood pressure Provider Name and Address Organization Details Last Updated DateTime 3 152.4 cm 34.2 kg/m2 68624.6 6 g 18 /min 99 % 99 % 73 /min 98.6 [degF] 124 mm[Hg] 83 mm[Hg] GARTH BAILEY - [facility] 3 13:32:08 Date Recorded Body height Body mass index (BMI) Body weight Respiratory rate Oxygen saturation Oxygen saturation in Arterial blood by Pulse oximetry Heart rate Body temperature Systolic blood pressure Diastolic blood pressure Provider Name and Address Organization Details Last Updated DateTime 3 152.4 cm 35.2 kg/m2 02341.6 3 g 18 /min 98 % 98 % 95 /min 97.8 [degF] 133 mm[Hg] 89 mm[Hg] GARTH BAILEY - [facility] 3 11:18:31 Social History Question Answer Notes LastModified by Organizat ion Details LastModified Time Tobacco Smoking Status Never Smoker GARTH RICHARD null, [place] - [facility] 09/07/2022 11:17:18 What Is Your Level Of Alcohol Consumption? None [email or web address] Information not available 09/07/2022 Have You Had Direct Contact, Or Contact During Intimacy, With Monkeypox Rash, Scabs, Or Body Fluids From A Person With Monkeypox? No [email or web address] Information not available 09/07/2022 Do You Use Any Illicit Or Recreational Drugs? No [email or web address] Information not available 09/07/2022 Have You Recently Traveled Abroad? No [email or web address] Information not available 09/07/2022 Do You Or Have You Ever Used Any Other Forms Of Tobacco Or Nicotine? No [email or web address] Information not available 09/07/2022 Sex: Unknown Functional Status None recorded. Mental Status None recorded. Family History Relationship Description Onset Age of this Age Resolved Age Notes LastModified by Organization Details LastModified Time Father No current problems or disability [email or web address] Not available 09/07 11:17:02 Mother No current problems or disability [email or web address] Not available 09/07 11:17:02 Medical History No medical history recorded. Gynecological HistoryNo gynecological history recorded. Obstetrics History GPAL:G 0 P 0 0 0 0 Immunizations Vaccine Type Date Status Note Provider Nam e and Address Organization Details Recorded Time COVID-19, mRNA, LNP-S, PF, 30 mcg/0.3 mL dose 2 completed Terra [place] null, [place] - [facility] 10/16/2022 14:37:55 COVID-19, mRNA, LNP-S, PF, 30 mcg/0.3 mL dose 1 completed Terra [place] null, PA - [facility] 10/16/2022 14:37:55 COVID-19, mRNA, LNP-S, PF, 30 mcg/0.3 mL dose 1 completed Terra [place] null, PA - [facility] 10/16/2022 14:37:55 Influenza, split virus, trivalent, preservative 1 completed Terra Lei null, [place] - [facility] 10/16/2022 14:37:55 Influenza, split virus, quadrivalent, PF 01/21/202 1 completed LEO Oliveira - [facility] 10/16/2022 14:37:55 Past Encounters Encounter ID Performer Location Encounter Start Date Encounter Closed Date Diagnosis/Indication Diagnosis SNOMED-CT Code Diagnosis ICD10 Code [id number] [address] [facility] [place] [address] 01/31/2021 14:30:54 01/31/2021 15:10:06 [id number] [address] [facility] [place] [address] 07/10/2016 11:15:03 07/10/2016 12:08:04 [id number] [address] [place] [address] [place] [address] 03/31/2022 17:56:56 03/31/2022 18:44:56 [id number] [address] [place] [address] [place] [address] 07/30/2016 17:02:48 07/30/2016 18:39:53 [id number] [address] [facility] [place] [address] 10/02/2019 09:19:13 10/02/2019 09:58:38 [id number] [address] [facility] [address] 07/26/2021 12:55:01 07/26/2021 13:46:20 [id number] [address] [facility] [address] 04/27/2016 13:59:25 04/27/2016 15:43:09 [id number] LEO ZIMMERMAN [address] [facility] [address] 09/07/2022 11:05:46 09/07/2022 11:59:13 Acute pharyngitis 080875333 J02.9 Acute sinusitis 62426887 J01.90 Exacerbati on of intermittent asthma 480730668 J45.21 [id number] RYLAN VASQUEZ MD [address] [place] [address] 10/16/2022 10:33:14 10/16/2022 16:06:33 Reactive airway disease 5259130425 06 J45.909 Postviral cough 87358089 4 R05.3 [id number] LEO ZIMMERMAN [address] [place] [address] 11/14/2022 11:42:09 11/14/2022 14:00:29 Exposure to SARS-CoV-2 620574384 Z20.822 Health Concerns Section Related Observation LastModified by Organization Detai ls LastModified Time None Recorded Concern Status LastModified by Organization Details LastModified Time None Recorded Advance Directives Directive None Recorded Payers Encounter Date Sequence Insurance Name Policy Number Policy Dempsey Covered Member ID Dempsey Member ID Guarantor Name 07/26/2021 1 [facility] [id number] Catherine Hardy [id number] Catherine Hardy 03/31/2022 1 [facility] [id number] Catherine Hardy [id number] Catherine Hardy 09/07/2022 1 [facility] [id number] Catherine Hardy [id number] Catherine Hardy 10/16/2022 1 [facility] [id number] Catherine Hardy [id number] Catherine Hardy 11/14/[address] [place] [address] [id number] Catherine Hardy [id number] Catherine Hardy Notes Date Note Type Note Provider Name and Address Organization Details Recorded Time text/html Sore throatReported bypatient.Source of patient informationInformation obtained from patient; Patient arrived at Urgent Care ambulatory Location:throat Severity:moderate Quality:hurts to swallow Onset/Timin days Associated Symptoms:no sputum production; no shortness of breath; no vomiting; no nausea;wheezing;sore throat;hoarseness;coughing; sinus pain/ congestion Context:sick contactNotes:The patient reports has had congestion for a few days. She reports yesterday much worse, she states that she hears herself wheezing. Has asthma. She states using proair but she doesn't have any medication for her pro-air at this time. The patient states that she feels mild short of breath. The patient has increased sinus pressure and congestion today. No fever. But does ahve a sore throat. COVID test was negative. LEO ZIMMERMAN [address] [place], [address], [employer] [facility] 09/07/2022 12:18:11 3 text/html CoughReported bypatient.source of patient informationInformation obtained from patient; Patient arrived at Urgent Care ambulatory Quality:intermittent Duration:symptoms lasting over 2 weeks Context:non-smoker;history of asthma Associated Symptoms:no fever; no chills; no chest pain; no heartburn; no nausea; no vomiting; no wheezing; no post nasal dripNotes:The patient is here for a COVID test she has been having ongoing issues with chest pain and shortness of breath. 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 She has had this appointment scheduled for the last 4 weeks. Currently just cough and mild shortness of breath. LEO ZIMMERMAN [address] [place], [address], [place] [employer] [facility] 11/14/2022 14:00:02 OBGyn Episode No OBEpisode recorded.
== END 2024-07-11 12:41 | disposition home or self-care (01) | DRG 141 ==
LOC: HO.ED 08:33 → HO.EDOVER 09:48 → HO.S3 19:18
PROVIDERS: Admitting Provider Nurse Practitioner Acute Care; Emergency Provider Emergency Medicine; PCP Physician Assistant; Visit Provider Nurse Practitioner Acute Care
DX: J45.21 Mild intermittent asthma with (acute) exacerbation (principal); N17.9 Acute kidney failure, unspecified; J10.1 Influenza due to other identified influenza virus with other respiratory manifestations; E03.9 Hypothyroidism, unspecified; E86.1 Hypovolemia; E66.01 Morbid (severe) obesity due to excess calories; Z68.37 Body mass index [BMI] 37.0-37.9, adult; Z79.890 Hormone replacement therapy; Z79.899 Other long term (current) drug therapy; Z71.3 Dietary counseling and surveillance
CPT/HCPCS: 0241U; 36415; 71045; 80048; 80053; 81001; 85025; 87086; 93005; 94640; 99285; J1644; J2405; J2919; J7120

== ENCOUNTER → 2024-07-10 05:50 | Outpatient (BNV) | payer OTHER, SELFPAY | PROVIDERS: Admitting Provider Nurse Practitioner Acute Care; Emergency Provider Emergency Medicine; PCP Physician Assistant; Visit Provider Internal Medicine Cardiovascular Disease | DX: R06.00 Dyspnea, unspecified (principal) | CPT/HCPCS: 93010 ==

== ENCOUNTER → 2024-07-10 09:40 | Outpatient (BNV) | payer OTHER, SELFPAY | PROVIDERS: Admitting Provider Nurse Practitioner Acute Care; Emergency Provider Emergency Medicine; PCP Physician Assistant; Visit Provider Nurse Practitioner Acute Care | DX: J11.1 Influenza due to unidentified influenza virus with other respiratory manifestations (principal); J45.41 Moderate persistent asthma with (acute) exacerbation; N17.9 Acute kidney failure, unspecified | CPT/HCPCS: 99222; 99239 ==

== ENCOUNTER 2025-01-13 14:17 | Emergency (ER) | payer OTHER, SELFPAY ==
[2025-01-13] VITALS (7 sets, daily range): BP systolic 129–154; BP diastolic 69–99; PULSE 66–105; RESP 12–18; TEMP 36.1–36.6; O2SAT 98–100; BMI 39.3
--- NOTE | ~2025-01-13 | US_ITS ---
CLINICAL HISTORY: right pelvic pain, ?cyst on CT US pelvis transabdominal and transvaginal with color and duplex Doppler Comparison: CT/SR - CT ABDOMEN PELVIS WO IV CON - 01/13/25 15:13 EDT Findings: Transabdominal scanning performed for overall anatomy. Transvaginal scanning performed for additional detail. LMP: Patient with IUD Anteverted uterus, normal size and echotexture, measuring 6.8 x 4.1 x 4.6 cm. 1 cm fundal fibroid. IUD within the endometrial cavity The right ovary measures, 4.1 x 2.4 x 1.9 cm. Anechoic cyst measuring 2.0 x 1.5 x 1.9 cm Normal color Doppler with normal ovarian arterial and venous spectral tracing, The left ovary measures, 2.4 x 1.5 x 2.2 cm. Normal sonographic appearance left ovary. Normal color Doppler with normal ovarian arterial and venous spectral tracing. Trace free fluid left adnexa No adnexal masses or fluid collections. Impression: 1. Uterus contains an IUD. 1 cm subserosal fundal fibroid anteriorly. 2. Simple cyst right ovary. Normal sonographic appearance left ovary. 3. Normal spectral Doppler interrogation both ovaries. This document has been electronically signed by: Ray Brandon MD on 01/13/2025 18:36:59
--- NOTE | ~2025-01-13 | CT_ITS ---
CLINICAL HISTORY: right flank pain CT abdomen and pelvis without IV or oral contrast Comparison: None Findings: 5 mm pulmonary nodule left lower lobe consider annual follow-up if patient is high-risk No dependent layering pleural effusions. The heart is not enlarged. Faint calcification midpole right kidney may represent milk of calcium in a renal cyst or caliceal diverticulum. No urolithiasis or evidence of obstructive uropathy.Normal distention of the urinary bladder. Evaluation of the liver, spleen, adrenal glands and pancreas demonstrates no lesions. Mild hepatomegaly. Borderline splenomegaly. It should be noted that isodense masses may be obscured in the absence of intravenous contrast. Absent gallbladder. No pathologically enlarged lymph nodes . No ascites demonstrated. Equivocal 3 cm cyst right adnexa pelvic sonogram would be confirmatory. Uterus contains an IUD. No vertebral body compression fractures or spondylolisthesis. No bony destructive lesions. Impression: 1. Faint calcifications midpole right kidney may represent milk of calcium within a renal cyst or caliceal diverticulum or nonobstructing caliceal stone this measures 6 mm. No urolithiasis or evidence of obstructive uropathy. 2. Hepatomegaly. Absent gallbladder correlate with patient's surgical history. 3. Probable cyst right adnexa pelvic sonogram would be confirmatory 4. 5 mm pulmonary nodule left lower lobe Fleischner Society 2017 Guidelines for incidentally detected indeterminate nodules in persons 35 years of age or older. Single Solid Nodules: 5 mm or smaller nodules need no follow-up in low risk, and [address] follow-up is optional in high risk patients. This document has been electronically signed by: Ray Brandon MD on 01/13/2025 16:31:47
--- NOTE | 2025-01-13 14:22 | ED.ABDPAIN ---
HPI - Abdominal Pain General Chief Complaint: Abdominal Pain Stated Complaint: abd pain Time Seen by Provider: 01/13/25 14:48 Source: patient and family () Mode of arrival: ambulatory Limitations: no limitations History of Present Illness ED Provider: ELIZABETH GONZALEZ PA-C HPI narrative: 40 year old female with pmhx significant for nephritis, hypothyroidism, s/p cholecystectomy and asthma who presents for right flank pain since . She describes the pain as sharp and constant. She reports pain began radiating to her right groin this morning. She reports associated dysuria and nausea without vomiting. She reports loose stools, but this is baseline for her. Reports she was sick last week with an upper respiratory infection and prescribed a course of prednisone. She regularly sees her land leasing information clerk at [facility] for management of her nephritis and states she is compliant with her losartan. Denies fever, vomiting, or hematuria. Denies hx of renal stones. Related Data Home Medications ?Medication ?Instructions ?Recorded ?Confirmed levothyroxine 88 mcg tablet 88 mcg PO DAILY@0600 07/10/24 07/10/24 losartan 50 mg tablet 50 mg PO DAILY 07/10/24 07/10/24 pantoprazole 40 mg tablet,delayed 40 mg PO DAILY@0630 07/10/24 07/10/24 release vitamins no.119-iron 1 tab PO DAILY 07/10/24 07/10/24 fumarate 29 mg-folic acid 1 mg tablet (Se-Aniya 19) Previous Rx's ?Medication ?Instructions ?Recorded albuterol sulfate 2.5 mg/3 mL 2.5 mg (3 mL) inhalation Q4H PRN 07/11/24 (0.083 %) solution for nebulization bronchospasm #180 mL albuterol sulfate 90 mcg/actuation 1 inh inhalation QID PRN shortness 07/11/24 aerosol inhaler (Ventolin HFA) of breath or wheezing #6.7 grams oseltamivir 30 mg capsule (Tamiflu) 30 mg PO BID 4 days #8 caps 07/11/24 prednisone 10 mg tablet See Taper PO DIRECTED #20 tabs 07/11/24 Allergies Allergy/AdvReac Type Severity Reaction Status Date / Time Iodinated Contrast Media Allergy Mild SWELLING Verified 01/13/25 14:22 [IV CONTRAST] shellfish derived Allergy Swelling Verified 01/13/25 14:22 Review of Systems Review of Systems Constitutional: No fever, chills, fatigue, night sweats, weight changes ENT/Mouth: No ear pain, hearing loss, nasal congestion, sinus pain, rhinorrhea, sore throat Eyes: No eye pain, swelling, redness, vision changes, discharge Cardio: No chest pain, palpitations, TURNER, orthopnea, peripheral edema Pulm: No SOB, cough, sputum, wheezing, dyspnea, hemoptysis GI: No nausea, vomiting, hematemesis, abdominal pain, diarrhea, constipation, hematochezia, melena, +right lower abd pain : No irregular bleeding, frequency, urgency, hesitancy, hematuria, flank pain, urinary flow changes, urinary incontinence or retention, +right flank pain, +dysuria MSK: No back pain, neck pain, joint pain, myalgias Skin: No lesions, rashes Neuro: No weakness, numbness, paresthesias, LOC, dizziness, headache Psych: No anxiety/panic, depression, SI/HI, AH/VH All other systems reviewed and are negative. [facility] Past Medical History Attestation statement: The following information was validated with the patient. Source: old records reviewed and nursing notes reviewed Social History Social History Household Members: Spouse Housing: House Do you presently have visiting nurse or other home services: No Alcohol intake: never Patient Tobacco Use Status: Never used Tobacco Physical Exam ED Vital Signs: Vital Signs - 24 hr 01/13/25 14:22 01/13/25 14:46 01/13/25 16:21 Temperature 97.8 F Pulse Rate 105 H 96 91 Respiratory Rate 16 18 18 Blood Pressure 150/99 H 154/87 H 135/85 Pulse Oximetry 100 98 99 Oxygen Delivery Method Room Air Room Air Room Air 01/13/25 17:17 01/13/25 18:39 01/13/25 19:33 Temperature 97.8 F 97 F Pulse Rate 77 66 Respiratory Rate 18 12 16 Blood Pressure 129/72 134/69 Pulse Oximetry 99 98 Oxygen Delivery Method Room Air Room Air 01/13/25 20:09 Temperature 97 F Pulse Rate 66 Respiratory Rate 16 Blood Pressure 134/69 Pulse Oximetry 98 Oxygen Delivery Method Room Air BMI result Body Mass Index 39.3 Hypertensive, vitals otherwise WNL General: Well appearing, in no acute distress. Skin: Warm, dry, intact. No rashes or lesions. Head: Normocephalic, atraumatic EENT: Hearing is intact b/l. Conjunctiva clear. PERRLA. EOM intact. Moist mucous membranes.? Cardiac: Chest wall symmetric. RRR Lungs: Normal respiratory effort without accessory muscle use. CTA bilaterally. No rales, rhonchi, or wheezes.? Abdomen: soft, nondistended, only tender to palpation of right lower quadrant with deep palpation. No rebound or guarding. No palpable mass. No CVAT bilaterally. Active bowel sounds x4. Back: No CVA tenderness. No midline spinous or paraspinal tenderness. No step off deformity. Ext: Upper and lower extremities atraumatic, without tenderness, deformity, swelling or erythema. No pitting edema. Neuro: AOx3. Normal speech. Psych: Appropriate mood and affect. Responds appropriately to questions. Course Course Course Narrative: Hilda Sherman APRN This is a rapid medical exam. Deferred additional HPI, ROS, PE to primary provider. 44 yo female with history of nephritis, HTN, hypthyroidism here with complaints of lower back pain since , now radiating to right abdomen with dysuria, +nausea. Will obtain labs, UA, ur preg VSS Reevaluation(s) Reevaluation #1: 1730 -- CBC without leukocytosis or left shift. No anemia. H&H stable. Chemistry without acute electrolyte abnormality requiring intervention. BUN 23 with creatinine 2.39, this appears to be around patient's baseline secondary to nephritis. Creatinine clearance 30.9. Random glucose 128. Urine showing trace leukocyte esterase, 6-10 WBCs, no urine bacteria. No blood. CT abdomen/pelvis shows faint calcifications mid pole right kidney which may represent milk of calcium within a renal cyst or caliceal diverticulum or nonobstructing calcium stone measuring 6 mm. There is no urolithiasis or evidence of obstructive uropathy. Hepatomegaly. Probable cyst to right adnexa measuring approximately 3 cm. There is also a 5 mm pulmonary nodule to left lower lobe with recommendation for repeat CT scan in 12 months. > given right lower back pain wrapping around to right pelvis with evidence of ovarian cyst to right adnexa, will further evaluate this with ultrasound. Patient agreeable. > treated with IV Tylenol and fluids. Still reporting pain. Low-dose IV morphine ordered > patient is stable at the end of my shift. Sign-out given to Argelia BAILEY pending imaging and disposition. Reevaluation #2: I Marsha Duque PA-C have accepted care of the patient at signed out pending imaging and final disposition Transvaginal ultrasound:The right ovary measures, 4.1 x 2.4 x 1.9 cm. Anechoic cyst measuring 2.0 x 1.5 x 1.9 cm Normal color Doppler with normal ovarian arterial and venous spectral tracing, The left ovary measures, 2.4 x 1.5 x 2.2 cm. Normal sonographic appearance left ovary. Normal color Doppler with normal ovarian arterial and venous spectral tracing. Trace free fluid left adnexa No adnexal masses or fluid collections. Impression: 1. Uterus contains an IUD. 1 cm subserosal fundal fibroid anteriorly. 2. Simple cyst right ovary. Normal sonographic appearance left ovary. 3. Normal spectral Doppler interrogation both ovaries. Medical Decision Making Medical Decision Making [facility] Narrative: 40 year old female with pmhx significant for nephritis, hypothyroidism, s/p cholecystectomy and asthma who presents for right flank pain since . Hypertensive, tachycardic, afebrile. She is well-appearing and in no acute distress. On exam, abdomen is soft, nondistended, only tender to palpation of right lower quadrant with deep palpation. No rebound or guarding. No palpable mass. No CVAT bilaterally. Active bowel sounds x4. Differential diagnoses: appendicitis, diverticulitis, diverticulosis, UTI, IUP, constipation Abdominal exam without peritoneal signs. No evidence of acute abdomen at this time. Well appearing. Low suspicion for acute hepatobiliary disease (including acute cholecystitis), acute infectious processes (pneumonia, hepatitis, pyelonephritis, PID, TOA), vascular catastrophe, bowel obstruction or viscus perforation, ovarian cyst/ rupture/ torsion, ectopic. Presentation not consistent with other acute, emergent causes of abdominal pain at this time. Plan: labs, UA, CT AP, pain control, fluids, serial reassessment Differential Diagnosis Differential Diagnoses: The differential diagnosis associated with the presentation includes as above. Lab Data [facility] Lab Attestation statement: I reviewed the patient's lab results. as above 01/13/25 14:46 01/13/25 14:46 Labs: Lab Results 01/13/25 Range/Units 14:46 WBC 10.0 (4.8-10.8) X10*3/uL RBC 4.42 (4.20-5.50) X10*6/uL Hgb 12.6 (12.0-16.0) g/dl Hct 36.1 L (37.0-47.0) % MCV 81.7 (80.0-98.0) fL MCH 28.5 (27.0-33.0) pg MCHC 34.9 (31.0-35.0) g/dl RDW 13.1 (11.0-16.0) % Plt Count 221 (160-400) X10*3/uL MPV 8.7 L (9.4-12.3) fL Immature Gran % (Auto) 0.7 H (0.0-0.4) % Neut % (Auto) 70.1 (45-73) % Lymph % (Auto) 19.4 L (20-40) % [place] % (Auto) 7.4 (2-11) % Eos % (Auto) 1.9 (0-4) % Baso % (Auto) 0.5 (0-2) % Lymph # (Auto) 1.9 (1.2-4.9) X10*3/uL [place] # (Auto) 0.7 (0.1-1.2) X10*3/uL Eos # (Auto) 0.2 (0.0-0.4) X10*3/uL Baso # (Auto) 0.1 (0.0-0.2) X10*3/uL Abs Immat Gran (auto) 0.07 H (0.00-0.03) X10*3/uL Absolute Neuts (auto) 7.0 (2.0-8.3) x10*3/uL Absolute Nucleated RBC 0.000 (0.0-0.012) X10*3/uL Nucleated RBC % (auto) 0.0 (0.0-0.2) /100WBC Sodium 138 (135-145) mmol/L Potassium 4.0 (3.3-5.1) mmol/L Chloride 105 (96-108) mmol/L Carbon Dioxide 23 (22-29) mmol/L Anion Gap 14 (12-20) BUN 23 H (9-16) mg/dL Creatinine 2.39 H (0.5-1.4) mg/dL Estim Creat Clear Calc 30.9 Estimated GFR 22 Random Glucose 128 H (60-115) mg/dL Calcium 9.3 (8.4-10.2) mg/dL Urine Color Yellow Urine Appearance Clear Urine pH 5.5 (5.0-9.0) Ur Specific [place] <= 1.005 (1.005-1.025) Urine Protein 100 (2+) H (Neg-Trace) mg/dL Urine Glucose (UA) 250 H (Negative) mg/dL Urine Ketones Negative (Negative) mg/dL Urine Blood Negative (Negative) Urine Nitrite Negative (Negative) Ur Leukocyte Esterase Trace H (Negative) Urine RBC 0-2 (0-2) /HPF Urine WBC 6-10 H (0-5) /HPF Ur Squamous Epith Cells 6-10 (0-2) /HPF Urine Bacteria None Seen (None Seen) Hyaline Casts 0-2 (0-2) /LPF Urine Test NEGATIVE (NEGATIVE) Independent Interpretation I performed an independent interpretation of an: Ultrasound and CT Scan Interpretation: ct a/p without obstructing ureteral stone Radiology Impression Discussion of test interpretation with radiology: I have reviewed the radiologist's reading. Radiologist Impression: Date of Service: 01/13/25 Procedure(s): CT abdomen pelvis wo IV con Accession Number(s): [id number] cc: Diya Jang MD; Elizabeth Gonzalez~ Report Number: [id number]: Total DLP = 641.00 mGy-cm CLINICAL HISTORY: right flank pain CT abdomen and pelvis without IV or oral contrast Comparison: None Findings: 5 mm pulmonary nodule left lower lobe consider annual follow-up if patient is high-risk No dependent layering pleural effusions. The heart is not enlarged. Faint calcification midpole right kidney may represent milk of calcium in a renal cyst or caliceal diverticulum. No urolithiasis or evidence of obstructive uropathy.Normal distention of the urinary bladder. Evaluation of the liver, spleen, adrenal glands and pancreas demonstrates no lesions. Mild hepatomegaly. Borderline splenomegaly. It should be noted that isodense masses may be obscured in the absence of intravenous contrast. Absent gallbladder. No pathologically enlarged lymph nodes . No ascites demonstrated. Equivocal 3 cm cyst right adnexa pelvic sonogram would be confirmatory. Uterus contains an IUD. No vertebral body compression fractures or spondylolisthesis. No bony destructive lesions. Impression: 1. Faint calcifications midpole right kidney may represent milk of calcium within a renal cyst or caliceal diverticulum or nonobstructing caliceal stone this measures 6 mm. No urolithiasis or evidence of obstructive uropathy. 2. Hepatomegaly. Absent gallbladder correlate with patient's surgical history. 3. Probable cyst right adnexa pelvic sonogram would be confirmatory 4. 5 mm pulmonary nodule left lower lobe Fleischner Society 2017 Guidelines for incidentally detected indeterminate nodules in persons 35 years of age or older. Single Solid Nodules: 5 mm or smaller nodules need no follow-up in low risk, and [address] follow-up is optional in high risk patients. Independent Historian Clinical information obtained from an independent historian. History obtained from or confirmed by: Spouse External Record Review External record reviewed: Inpatient record Prescription Management I considered prescription management with: Pain Medication Chronic Conditions Patient?s care impacted by: Other (nephritis) Social Determinants Patient?s care significantly limited by Social Determinants of Health including: Other Social Determinant of Health Medications Administered Discontinued Medications Generic Name Dose Route Start Last Admin Trade Name Freq PRN Reason Stop Dose Admin Sodium Chloride 1,000 mls @ 999 mls/hr 01/13/25 16:00 01/13/25 17:20 Ns IV 01/13/25 17:00 Infused .Q1H1M CHANELLE Infusion Acetaminophen 1,000 mg in 100 mls @ 400 mls/hr 01/13/25 15:54 01/13/25 16:34 Ofirmev IV 01/13/25 16:08 Infused ONCE ONE Infusion Morphine Sulfate 2 mg 01/13/25 17:00 01/13/25 17:17 Morphine Sulfate 2 Mg/Ml Cartridge IVPUSH 01/13/25 17:01 2 mg ONCE ONE Administration Protocol Critical Care Time Critical Care Time Critical Care Time: Yes Total Critical Care Time: 31 Attestation: Critical care time in the amount of 31 minutes has been provided to the patient in terms of direct patient care, frequent reevaluation on IV morphine, review and interpretation of medical data and results, and management of potentially life-threatening conditions. This is all outside of any medical procedures. Discharge Plan Discharge Clinical Impression: Ovarian cyst, Fibroid, uterine Patient Disposition: Home, Self-Care Instructions: Ovarian Cyst (ED), Uterine Fibroids (ED) Additional Instructions: All of your screening labs were normal, the CT scan of the abdomen was normal as well. The transvaginal ultrasound revealed that you have a 1 cm uterine fibroid and a 2 cm ovarian cyst. See home care instructions. You can use [id number] Tylenol 1000 mg taken every 8 hours for your discomfort. The fibroid and the ovarian cyst will be tracked and followed by your mobile equipment mechanic, you can call to schedule an appointment. Follow up with your primary care provider as needed. Prescriptions: No Action losartan 50 mg tablet 50 mg PO DAILY levothyroxine 88 mcg tablet 88 mcg PO DAILY@0600 pantoprazole 40 mg tablet,delayed release (DR/EC) 40 mg PO DAILY@0630 Se- 19 29 mg iron- 1 mg tablet 1 tab PO DAILY prednisone 10 mg tablet See Taper PO DIRECTED Qty: 20 0RF Taper: Prednisone 40 mg daily for 2 Days and 0 Hour 30 mg daily for 2 Days and 0 Hour 20 mg daily for 2 Days and 0 Hour 10 mg daily for 2 Days and 0 Hour Rx Instructions: see taper instructions albuterol sulfate [Ventolin HFA] 90 mcg/actuation HFA aerosol inhaler 1 inh inhalation QID PRN (Reason: shortness of breath or wheezing) Qty: 6.7 0RF oseltamivir [Tamiflu] 30 mg capsule 30 mg PO BID 4 Days Qty: 8 0RF albuterol sulfate 2.5 mg /3 mL (0.083 %) solution for nebulization 2.5 mg inhalation Q4H PRN (Reason: bronchospasm) Qty: 180 0RF Interventions: ED Discharge Assessment Last Done: 01/13/25 20:09 Discharge Date/Time: 01/13/25 20:10 Print Language: [place]
[2025-01-13 14:52] LABS: MANUAL DIFF FLAG NO
[2025-01-13 14:53] LABS: Basophils Absolute Auto 0.1 X10*3/uL (0.0-0.2); Basophils Percent Auto 0.5 % (0-2); Eosinophils Absolute Auto 0.2 X10*3/uL (0.0-0.4); Eosinophils Percent Auto 1.9 % (0-4); Hematocrit 36.1 % (37.0-47.0); Hemoglobin 12.6 g/dl (12.0-16.0); Imm Gran Abs Auto 0.07 X10*3/uL (0.00-0.03); Imm Gran Pct Auto 0.7 % (0.0-0.4); Lymphocytes Absolute Auto 1.9 X10*3/uL (1.2-4.9); Lymphocytes Percent Auto 19.4 % (20-40); Mean Corpuscular HGB Conc 34.9 g/dl (31.0-35.0); Mean Corpuscular Hemoglobin 28.5 pg (27.0-33.0); Mean Corpuscular Volume 81.7 fL (80.0-98.0); Mean Platelet Volume 8.7 fL (9.4-12.3); Monocytes Absolute Auto 0.7 X10*3/uL (0.1-1.2); Monocytes Percent Auto 7.4 % (2-11); Neutrophils Percent Auto 70.1 % (45-73); Platelet Count 221 X10*3/uL (160-400); Red Blood Count 4.42 X10*6/uL (4.20-5.50); Red Cell Distribution Width 13.1 % (11.0-16.0)
[2025-01-13 14:56] LABS: Appearance Urine Clear; Color Urine Yellow; Glucose Urine UA 250 mg/dL (Negative); Leukocyte Esterase Urine Trace (Negative); Nitrite Urine Negative (Negative); PH 5.5 (5.0-9.0); Specific Gravity - Urine <= 1.005 (1.005-1.025); UMIC TRIGGER UACC YES; Urine Blood Negative (Negative); Urine Ketones Negative (Negative); Urine Protein 100 (2+) mg/dL (Neg-Trace)
[2025-01-13 14:58] LABS: UPreg QC Valid YES; Urine Pregnancy NEGATIVE (NEGATIVE)
[2025-01-13 14:59] LABS: Bacteria Urine None Seen (None Seen); Hyaline Casts Urine 0-2 /LPF (0-2); RBC Urine 0-2 /HPF (0-2); UACC Culture Trigger YES
[2025-01-13 15:06] LABS: Anion Gap 14 (12-20); Blood Urea Nitrogen 23 mg/dL (9-16); Calcium 9.3 mg/dL (8.4-10.2); Carbon Dioxide 23 mmol/L (22-29); Chloride 105 mmol/L (96-108); Creatinine Clr Calc Pharmacy 30.9; Estimated Glomerular Filt Rate 22; Glucose Random 128 mg/dL (60-115); Sodium 138 mmol/L (135-145)
[2025-01-13] MEDS: 0.9 % Sodium Chloride 1,000 ML 999 ML IV (16:19)
[2025-01-13] MEDS: Acetaminophen 1,000 MG/100 ML PIGGYBACK 400 MG IV (16:19)
[2025-01-13] MEDS: Morphine Sulfate 2 MG/ML CARTRIDGE IVPUSH (17:17)
--- NOTE | 2025-01-13 18:51 | PC.NURSE ---
Report given to NATALY Traore.
== END 2025-01-13 20:10 | disposition home or self-care (01) ==
PROVIDERS: Nurse Practitioner Family; Emergency Provider Internal Medicine; PCP Internal Medicine
DX: N83.291 Other ovarian cyst, right side (principal); D25.2 Subserosal leiomyoma of uterus; R10.31 Right lower quadrant pain; E03.9 Hypothyroidism, unspecified; Z79.899 Other long term (current) drug therapy
CPT/HCPCS: 36415; 74176; 76830; 76856; 80048; 81001; 81025; 85025; 87086; 87147; 93975; 96361; 96374; 96375; 99284; 99285; J0131; J2270

== ENCOUNTER → 2025-01-13 15:11 | Outpatient (BNV) | payer OTHER, SELFPAY | PROVIDERS: Emergency Provider Emergency Medicine; PCP Internal Medicine; Visit Provider Radiology Diagnostic Radiology | DX: D25.2 Subserosal leiomyoma of uterus (principal); N83.201 Unspecified ovarian cyst, right side | CPT/HCPCS: 93975 ==

== ENCOUNTER 2025-05-10 08:54 | Emergency (ER) | payer OTHER, SELFPAY ==
--- OUTSIDE RECORDS SUMMARY | 2025-05-06 15:45 | XMS_ITS | Encounter Summary ---
Author Organization [facility] Address [address] [phone] Phone Care Team Providers Care Distributed Generation Project Manager Name Role Phone Diya Jang MD Primary Care Provider Encounter Details Date Type Department Care Team (Late st Contact Info) Description 05/06/2025 3:45 PM EDT Office Visit [facility]. [address] [phone] Mo Diaz MD [address] [phone] Stage 3 chronic kidney disease, not otherwise specified (HCC) (Primary Dx); Chronic glomerulonephritis; Hypertension; Other proteinuria Social History Tobacco Use Types Packs/Day Years Used Date Smoking Tobacco: Never Assessed Comments Unknown Sex and Gender Information Value Date Recorded Sex Assigned at Not on file Legal Sex Female 4:48 PM EST Gender Identity Not on file Sexual Orientation Not on file documented as of this encounter Last Filed Vital Signs Vital Sign Reading Time Taken Comments Blood Pressure 130/74 05/06/2025 3:53 PM EDT Pulse 85 05/06/2025 3:53 PM EDT Temperature - - Respiratory Rate - - Oxygen Saturation - - Inhaled Oxygen Concentration - - Weight 92.5 kg (204 lb) 05/06/2025 3:53 PM EDT Height - - Body Mass Index - - documented in this encounter Progress Notes * Mo Diaz MD - 05/06/2025 3:45 PM EDT [facility] Patient Name: Toni Fuller Date of : 1980, 44 y.o. Date: 05/06/2025 Referring MD: Angie Fu MD PCP: Diya Jang MD Reason For Visit: I had the pleasure of seeing your patient for follow up of CKD. The following portions of the patient's chart were reviewed in this encounter and updated as appropriate: Allergies Meds Problems Med Hx Surg Hx Fam Hx Constitutional: Negative for chills, fever, malaise/fatigue and weight loss. HENT: Negative for ear pain, hearing loss and tinnitus. Eyes: Negative for blurred vision, double vision, photophobia and pain. Respiratory: Negative for cough, hemoptysis, sputum production, shortness of breath and wheezing. Cardiovascular: Negative for chest pain, palpitations, orthopnea, claudication and leg swelling. Gastrointestinal: Negative for abdominal pain, diarrhea, nausea and vomiting. Genitourinary: Negative for dysuria, flank pain, frequency, hematuria and urgency. Musculoskeletal: Negative for myalgias. Skin: Negative for itching and rash. Neurological: Negative for dizziness, tingling and headaches. Psychiatric/Behavioral: Negative for depression. Full 13 point review of systems unremarkable except as noted above. History reviewed. No pertinent past medical history. History reviewed. No pertinent surgical history. Social History Tobacco Use Smoking status: Not on file Smokeless tobacco: Not on file Substance Use Topics Alcohol use: Not on file History reviewed. No pertinent family history. Current Outpatient Medications Medication Sig Dispense Refill albuterol HFA (PROVENTIL HFA;VENTOLIN HFA) 108 (90 Base) MCG/ACT inhaler Inhale 2 puffs Butalbital-Acetaminophen 50-325 MG tablet Take 1 tablet by mouth every 4 (four) hours ergocalciferol (Drisdol) 1.25 MG (70308 UT) capsule Take 1 capsule (50,000 Units total) by mouth 1 (one) time per week 12 capsule 0 fluticasone (FLONASE) 50 MCG/ACT nasal spray 2 sprays in each nostril once per day for 2 weeks. labetalol (NORMODYNE) 200 MG tablet Take 1 tablet (200 mg total) by mouth in the morning and 1 tablet (200 mg total) in the evening. 180 tablet 3 levothyroxine (SYNTHROID, LEVOTHROID) 88 MCG tablet Take 88 mcg by mouth in the morning. pantoprazole (PROTONIX) 40 MG EC tablet Take 40 mg by mouth in the morning. No current facility-administered medications for this visit. Allergies Allergen Reactions Iodine Shellfish-Derived Products Objective: Vitals: 05/06/25 1553 BP: 130/74 Pulse: 85 Weight: 204 lb (92.5 kg) Physical Exam Constitutional: Oriented to person, place, and time. HEENT: Mouth/Throat: Oropharynx is clear and moist. Eyes: Pupils are equal, round, and reactive to light. Neck: No JVD present. Cardiovascular: Regular rhythm. Pulmonary/Chest: Breath sounds normal. Abdominal: Soft. There is no abdominal tenderness. Musculoskeletal: Normal range of motion. Neurological: Alert and oriented to person, place, and time. Skin: Skin is warm. Psychiatric: Normal mood and affect. No results found for: EGFRAFR No results found for: EGFRNAFR Chemistry Lab Units 05/03/25 1158 01/24/25 1503 11/30/24 0822 09/25/24 0953 08/30/24 0744 05/31/24 0000 CREATININE mg/dL 2.42* -- 2.37* 2.37* -- 2.30* 2.31 BUN mg/dL 26* -- 27* 27* -- 33* 32 BUN / CREAT RATIO 10.7 -- 11.4 11.4 -- 14.3 -- GLUCOSE mg/dL -- -- 109* -- 102* 98 POTASSIUM mmol/L 4.1 -- 4.6 4.6 -- 4.1 4.5 SODIUM mmol/L 137 -- 138 138 -- 134 138 CO2 mmol/L 24 -- 26 26 -- 23 28 CHLORIDE mmol/L 106 -- 109 109 -- 105 106 ALBUMIN g/dL 3.3 -- 3.3 3.3 -- 3.5 -- HEMOGLOBIN A1C % -- 5.7 -- 5.6 -- -- Bone Mineral Lab Units 05/03/25 1158 11/30/24 0822 08/30/24 0744 05/31/24 0000 CALCIUM mg/dL 8.9 8.7 8.7 9.2 9.2 PHOSPHORUS mg/dL 2.4* 3.0 3.0 2.5 -- PTH pcg/mL 228.8* -- -- -- VIT D 25 HYDROXY ng/mL 17.3* -- -- -- Urine Lab Units 05/03/25 1204 11/30/24 0822 PROT/CREAT RATIO UR mg/mg creat -- 2.85* ALB MG/G CREAT UR mg/g creat 2,634* 2,634* -- No lab exists for component: SPECGRAV , GLUCOSEUR , BILIRUBINUR , RBCUR , UPROTEIN , LEUKOCYTESUR , NITRITE PLAN: Assessment & Plan 1. Stage 3 chronic kidney disease, not otherwise specified (HCC) 2. Chronic glomerulonephritis 3. Hypertension 4. Other proteinuria Kidney function is stable. She has nephrotic range proteinuria. 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 moderate number of mesangial electron dense deposits with full house reactivity (see note) - The deposits are reactive for IgA, IgM, IgG, C1q, C3, and kappa and lambda light chains - The differential diagnosis include a systemic autoimmune disease, an infection-associated immune complex disease, and an IgA nephropathy -An immune complex glomerulitis with lupus-like features has been described in patients with HIV infection Focal global and segmental glomerulosclerosis with segmental collapse of capillaries, 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 - The possibility of a homozygous or compound heterozygous carrier state of the risk alleles of APOL1 should be considered in patients with ancestry as a potentially important contributing genetic factor to the vascular disease and the sclerosing glomerular lesions - Inflammatory conditions and several viral diseases are known to represent triggers for episodes of active collapsing glomerulopathy; it may therefore be prudent to test for active viral infections in this young patient, including HIV infection Adaptive hypertrophy of the glomeruli and renal tubules, most likely associated to obesity and the moderately advanced chronic changes of the parenchyma (see note) Moderate distention of the tubules, with focal flattening of the epithelium and loss of brush border in proximal convoluted tubules, most likely representing the expression of acute tubular injury - The differential diagnosis also include an obstructive uropathy Moderate chronic changes of the parenchyma, including: - Focal global glomerulosclerosis with collapsing features in 1 glomerulus - Focal and segmental glomerulosclerosis with collapsing features in 1 glomerulus - Focal tubular atrophy and interstitial fibrosis (30-40% of the cortex) - Moderate arterial and arteriolar sclerosis Recent complement level was normal Anti DNA was negative. HIV was negative. She previously completed a course of prednisone and she was on mycophenolate mofetil. Kidney biopsy previously had showed an immune complex mediated glomerulonephritis with mesangioproliferative and mild focal proliferative pattern. The deposits showed strong reactivity with IgG, IgA, IgM, C3, C1q and both light chains. Mesengial and subendothelial electron dense deposit were seen. The finding were strongly suggestive of a disease with circulating immune complexes and activation via the classical pathway. Differential diagnosis included auto immune disease and chronic infections. 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 Kidney US had showed small size kidneys suggesting prior injury and also a simple cyst. Blood pressure is on target. She is on topiramate which can cause a renal tubular acidosis and increase propensity for kidney stones. She is off dapagliflozin and losartan as she trying to get . REC Ergocalciferol Labetalol 200 mg bid Follow kidney function and electrolytes UPCR iPTH and vit D Avoid NSAID Low sodium diet Orders Placed This Encounter Renal funtion panel urine albumin / creatinine ratio Vit D 25 hydroxy PTH, intact ergocalciferol (Drisdol) 1.25 MG (84428 UT) capsule Return in 6 months (on 11/04/2025). Mo Diaz MD documented in this encounter Miscellaneous Notes * Addendum Note - Mo Diaz MD - 05/06/2025 3:45 PM EDTAddended by: MO DIAZ on: 05/06/2025 04:09 PM Modules accepted: Orders documented in this encounter Plan of Treatment Upcoming Encounters Date Type Department Care Team (Late st Contact Info) Description 11/07/2025 2:30 PM EDT Office Visit [facility] [address] [phone] Mo Diaz MD [address] [phone] Scheduled Orders Name Type Priority Associated Diagnoses Orde r Schedule Renal funtion panel Lab Routine Stage 3 chronic kidney disease, not otherwise specified (HCC) Expected: 05/06/2025, Expires: 06/06/2026 urine albumin / creatinine ratio Lab Routine Stage 3 chronic kidney disease, not otherwise specified (HCC) Expected: 05/06/2025, Expires: 06/06/2026 Vit D 25 hydroxy Lab Routine Stage 3 chronic kidney disease, not otherwise specified (HCC) Expected: 05/06/2025, Expires: 06/06/2026 PTH, intact Lab Routine Stage 3 chronic kidney disease, not otherwise specified (HCC) Expected: 05/06/2025, Expires: 06/06/2026 Renal funtion panel Lab Routine Stage 3 chronic kidney disease, not otherwise specified (HCC) Expected: 05/06/2025, Expires: 06/06/2026 urine albumin / creatinine ratio Lab Routine Stage 3 chronic kidney disease, not otherwise specified (HCC) Expected: 05/06/2025, Expires: 06/06/2026 PTH, intact Lab Routine Stage 3 chronic kidney disease, not otherwise specified (HCC) Expected: 05/06/2025, Expires: 06/06/2026 Vit D 25 hydroxy Lab Routine Stage 3 chronic kidney disease, not otherwise specified (HCC) Expected: 05/06/2025, Expires: 06/06/2026 documented as of this encounter Visit Diagnoses Diagnosis Stage 3 chronic kidney disease, not otherwise specified (HCC)- Primary Chronic glomerulonephritis Hypertension Other proteinuria documented in this encounter Care Teams Distributed Generation Project Manager Relationship Specialty Start Date End Date Diya Jang MD [address] [place] [id number] PCP - General Internal Medicine 06/22/24 documented as of this encounter
--- NOTE | ~2025-05-10 | NM_ITS ---
EXAMINATION: NM LUNG PERFUSION HISTORY: + dimer, pleuritic CP. TECHNIQUE: A pulmonary perfusion scan was performed following intravenous administration of 4 mCi technetium 99m-MAA. The patient was imaged in multiple projections. COMPARISON: Correlation is made with an AP portable view of the chest performed earlier in the day. FINDINGS: There is a normal homogeneous distribution of activity throughout both lungs. No segmental or subsegmental perfusion defects are identified. NM/NM pul perfusion IMPRESSION: Normal pulmonary perfusion scan. Electronically signed by: Benjamin Valdez MD 05/10/2025 12:10 PM EDT
--- NOTE | ~2025-05-10 | XR_ITS ---
EXAMINATION: XR CHEST CLINICAL INFORMATION: sob cough peluritic cp COMPARISON: X-ray 05/10/2024 TECHNIQUE: Frontal view of the chest was obtained. FINDINGS: The cardiomediastinal silhouette is within normal limits. The lungs are well expanded. There is no focal consolidation, edema, or effusion. No pneumothorax. No acute osseous abnormality. XR/XR chest 1V IMPRESSION: No evidence of acute cardiopulmonary process. Electronically signed by: Seamus Servin MD 05/10/2025 10:40 AM EDT
--- NOTE | 2025-05-10 09:02 | ECG_ITS ---
Test Reason : uri sx Blood Pressure : */* mmHG Vent. Rate : 85 BPM Atrial Rate : 85 BPM P-R Int : 152 ms QRS Dur : 76 ms QT Int : 376 ms P-R-T Axes : 67 43 42 degrees QTcB Int : 447 ms Normal sinus rhythm Normal ECG When compared with ECG of 10-Jul-2024 05:50, Vent. rate has decreased by 46 bpm Referred By: Sam Farias Electronically Signed By: LUDWIN HURTADO MD
[2025-05-10 09:08] VITALS: BP 136/63; PULSE 97; RESP 16; TEMP 36.9; O2SAT 99; BMI 39.8
--- NOTE | 2025-05-10 09:08 | ED_ITS ---
HPI - General Adult General Chief complaint: Dyspnea Stated complaint: Upper resp symptoms Time Seen by Provider: 05/10/25 09:02 Source: patient Mode of arrival: ambulatory Limitations: no limitations History of Present Illness ED Provider: LEO Farias HPI narrative: This is a 44-year-old female who presents with cough and wheezing for the past 3 days also reports chest pressure with deep inspiration and reports difficult to take a deep breath. She reports she was seen at urgent Care and they gave her Tessalon Perles as well as prednisone however symptoms persist despite taking this for the past few days. She was tested for flu, COVID and RSV all of which were negative. Overall she feels fatigued and unwell. She denies history of DVT or PE. Nonsmoker. Not on control. Denies sick contacts. Denies nausea, vomiting, abdominal pain, diarrhea. Related Data Home Medications ?Medication ?Instructions ?Recorded ?Confirmed levothyroxine 88 mcg tablet 88 mcg PO DAILY@0600 07/1007/10/24 losartan 50 mg tablet 50 mg PO DAILY 07/10/2407/01 pantoprazole 40 mg tablet,delayed 40 mg PO DAILY@0630 07/10/24 07/10/24 release vitamins no.119-iron 1 tab PO DAILY 07/10/24 07/10/24 fumarate 29 mg-folic acid 1 mg tablet (Se-Aniya 19) Previous Rx's ?Medication ?Instructions ?Recorded albuterol sulfate 2.5 mg/3 mL 2.5 mg (3 mL) inhalation Q4H PRN 07/11/24 (0.083 %) solution for nebulization bronchospasm #180 mL albuterol sulfate 90 mcg/actuation 1 inh inhalation QI D PRN shortness 07/11/24 aerosol inhaler (Ventolin HFA) of breath or wheezing # 6.7 grams oseltamivir 30 mg capsule (Tamiflu) 30 mg PO BID 4 day s #8 caps 07/11/24 prednisone 10 mg tablet See Taper PO DIRECTED #20 tabs 07/11/24 albuterol sulfate 90 mcg/actuation 2 inh inhalation Q4 -6H PRN 05/10/25 breath activated powder inhaler shortness of breath or wheezing #1 ea doxycycline hyclate 100 mg capsule 100 mg PO BID 10 da ys #20 caps 05/10/25 Allergies Allergy/AdvReac Type Severity Reaction Status Date / Time Iodinated Contrast Media (IV Allergy Mild SWELLING Verified 05/10/25 09:11 CONTRAST) shellfish derived Allergy Swelling Verified 05/10/25 09:11 Review of Systems 2 Review of Systems: Yes all other systems are reviewed and are negative [facility] Past Medical History Attestation statement: The following information was validated with the patient. Source: old records reviewed and nursing notes reviewed Social History Social History Household Members: Spouse Housing: House Do you presently have visiting nurse or other home services: No Alcohol intake: never Patient Tobacco Use Status: Never used Tobacco Smoked in Last 30 Days: No Use of substances other than those prescribed or required for medical reasons: No Advance Directives: No Advance Directives Information Provided: Yes Do you have a plan to hurt others: No Plan Physical Exam ED Exam Exam: Appearance: Alert.? Oriented X3.? No acute distress.? Head: Normocephalic, atraumatic, no step-offs or deformities Eyes: Pupils equal, round and reactive to light.? ENT: Pharynx normal.? Neck: Normal inspection.? Neck supple.? CVS: Normal heart rate and rhythm.? Pulses normal.? Respiratory: No respiratory distress.? Breath sounds mild expiratory wheezing.? Abdomen: Soft and nontender.? Skin: Skin warm and dry.? Normal skin color.? Normal skin turgor.? Extremities: No lower extremity edema.? No calf ttp. 5/5 strength to bilateral upper and lower extremities Neuro: Oriented X 3.? No motor deficit.? No sensory deficit. CN 2-12 intact Vital Signs: Vital Signs - 24 hr 05/10/25 09:08 05/10/25 10:33 05/10/25 11:12 Temperature 98.4 F 97.8 F 97.7 F Pulse Rate 97 85 84 Respiratory Rate 16 20 22 H Blood Pressure 136/63 151/92 H 126/40 L Pulse Oximetry 99 98 99 Oxygen Delivery Method Room Air Room Air Room Air Nasal Cannula 05/10/25 12:01 Temperature Pulse Rate 86 Respiratory Rate 22 H Blood Pressure Pulse Oximetry 98 Oxygen Delivery Method BMI result Body Mass Index 39.8 vss Course Reevaluation(s) Reevaluation #1: CBC with leukocytosis, chemistry with acute on chronic kidney injury slightly worse than usual. Troponin negative, EKG nonischemic. D-dimer is positive however due to kidney function unable to obtain CTA V/Q scan ordered. At this time infection suspected blood cultures, lactic acid ordered. Will also order ceftriaxone and fluids. Time: 10:19 Reevaluation #2: Chest x-ray with no evidence of acute cardiopulmonary process. V/Q scan pending. Time: 10:49 Reevaluation #3: Normal pulmonary perfusion scan. Patient has been having these symptoms for 3-4 days. She is quite uncomfortable she does have leukocytosis will discharge her with doxycycline. Will also give her prednisone. Educated patient on diagnosis and treatment plan, answered all question, patient verbalizes understanding. At this time patient will be discharged home, advised to return with new or worsening symptoms. Educated on worrisome signs and symptoms and when to return. At this time I feel comfortable discharge home. Time: 12:18 Medications Administered Discontinued Medications Generic Name Dose Route Start Last Admin Trade Name Freq PRN Reason Stop Dose Admin Ceftriaxone Sodium 1 gm 05/10/25 10:19 05/10/25 11:08 Ceftriaxone Sodium 1 Gm Vial IVPUSH 05/10/25 10:20 1 gm ONCE ONE Administration Sodium Chloride 1,000 mls @ 999 mls/hr 05/10/25 10:15 05/10/25 11:09 Ns IV 05/10/25 11:15 999 mls/hr .Q1H1M CHANELLE Administration Sodium Chloride 1,000 mls @ 999 mls/hr 05/10/25 10:30 05/10/25 11:09 Ns IV 05/10/25 11:30 999 mls/hr .Q1H1M CHANELLE Administration Medical Decision Making Medical Decision Making [facility] Narrative: 0910 54-year-old female presents with upper respiratory symptoms x3 days. Recently seen at urgent care who gave her prednisone and Tessalon Perles Physical exam with mild expiratory wheezing History and physical exam concerning for viral illness versus bronchitis. Unlikely pneumonia. Will rule out PE. History and physical exam with low suspicion for ACS. Plan labs, imaging, Differential Diagnosis Differential Diagnoses: The differential diagnosis associated with the presentation includes (History and physical exam concerning for viral illness versus bronchitis. Unlikely pneumonia. Will rule out PE. History and physical exam with low suspicion for ACS.) Admission/Observation Consideration of admission/observation: Escalation of care including admission/observation considered Lab Data [facility] Lab Attestation statement: I reviewed the patient's lab results. 05/10/25 09:31 05/10/25 09:31 Labs: Lab Results 05/10/25 05/10/25 05/10/25 Range/Units 09:31 10:01 10:32 WBC 12.6 H (4.8-10.8) X10*3/uL RBC 4.06 L (4.20-5.50) X10*6/uL Hgb 11.6 L (12.0-16.0) g/dl Hct 34.5 L (37.0-47.0) % MCV 85.0 (80.0-98.0) fL MCH 28.6 (27.0-33.0) pg MCHC 33.6 (31.0-35.0) g/dl RDW 13.8 (11.0-16.0) % Plt Count 244 (160-400) X10*3/uL MPV 8.5 L (9.4-12.3) fL Immature Gran % (Auto) 0.9 H (0.0-0.4) % Neut % (Auto) 79.3 H (45-73) % Lymph % (Auto) 11.5 L (20-40) % [place] % (Auto) 6.5 (2-11) % Eos % (Auto) 1.4 (0-4) % Baso % (Auto) 0.4 (0-2) % Lymph # (Auto) 1.5 (1.2-4.9) X10*3/uL [place] # (Auto) 0.8 (0.1-1.2) X10*3/uL Eos # (Auto) 0.2 (0.0-0.4) X10*3/uL Baso # (Auto) 0.1 (0.0-0.2) X10*3/uL Abs Immat Gran (auto) 0.11 H (0.00-0.03) X10*3/uL Absolute Neuts (auto) 10.0 H (2.0-8.3) x10*3/uL Absolute Nucleated RBC 0.000 (0.0-0.012) X10*3/uL Nucleated RBC % (auto) 0.0 (0.0-0.2) /100WBC PT 11.1 (10.9-12.4) SEC INR 1.0 (0.9-1.1) D-Dimer High Sensitivty 472 NG/ML Sodium 138 (135-145) mmol/L Potassium 4.1 (3.3-5.1) mmol/L Chloride 106 (96-108) mmol/L Carbon Dioxide 25 (22-29) mmol/L Anion Gap 11 L (12-20) BUN 30 H (9-16) mg/dL Creatinine 2.74 H (0.5-1.4) mg/dL Estim Creat Clear Calc 27.1 Estimated GFR 19 Random Glucose 101 (60-115) mg/dL Lactic Acid 1.4 (0.5-2.0) mmol/L Calcium 9.0 (8.4-10.2) mg/dL Magnesium 1.9 (1.6-2.6) mg/dL Total Bilirubin 0.2 (0.0-1.0) mg/dL AST 20 (5-31) U/L ALT 22 (0-31) U/L Alkaline Phosphatase 81 (39-117) U/L Troponin I High Sens < 2.7 (<3.5-17.0) ng/L Total Protein 7.3 (6.5-8.0) g/dL Albumin 4.1 (3.5-5.0) g/dL Urine Test NEGATIVE (NEGATIVE) COVID-19 (IMANI) Negative (Negative) COVID-19 Clin Com See Note Influenza Type A (COOPER) Negative (Negative) Influenza Type B (COOPER) Negative (Negative) Influenza A & B Note See Note Independent Interpretation I performed an independent interpretation of an: EKG (Nondiagnostic for chief complaint- non ischemic HR 85 ), Plain X-Ray (XR/XR chest 1V IMPRESSION: No evidence of acute cardiopulmonary process. ) and Vq/Perfusion Scan (NM/NM pul perfusion IMPRESSION: Normal pulmonary perfusion scan.) Radiology Impression Discussion of test interpretation with radiology: I have reviewed the radiologist's reading. External Record Review External record reviewed: Inpatient record, Office record, Outpatient record, Prior outpatient labs, Prior outpatient radiology, Primary care record and Outside ED record Chronic Conditions denies Critical Care Time Critical Care Time Critical Care Time: Yes Total Critical Care Time: 35 Attestation: I attest to this time spent taking care of the patient, obtaining history, physical, reviewing labs, imaging, treatment of patients condition +/- specialist/hospitalist consult +/- procedure Discharge Plan Discharge Clinical Impression: Bronchitis, Acute kidney injury superimposed on CKD, Cough Patient Disposition: Home, Self-Care Instructions: Acute Kidney Injury (DC), Acute Bronchitis (ED) Additional Instructions: Take your medications as prescribed. If you were prescribed antibiotics today, it is important that you take your medication to their entirety, do not skip any doses, do not finish them early. Follow-up with your primary care provider this week. Return to the emergency department with new or worsening symptoms. Such as fevers, chills, chest pain, shortness of breath, nausea, vomiting, dizziness, headache, vision changes, lethargy In case of emergency call 911 You tested negative for flu, COVID. Your chest x-ray showed no evidence of acute cardiopulmonary processes. Your V/Q scan showed normal pulmonary perfusion. Please note your kidney function was elevated you should follow up with your PCP as you may need to see a renal specialist You will be discharged on antibiotics for suspected bronchitis. Please complete them. You should also continue taking Tessalon Perles and prednisone. I have also send you an inhaler. Prescriptions: New albuterol sulfate 90 mcg/actuation aerosol powdr breath activated 2 inh inhalation Q4-6H PRN (Reason: shortness of breath or wheezing) Qty: 1 0RF doxycycline hyclate 100 mg capsule 100 mg PO BID 10 Days Qty: 20 0RF No Action losartan 50 mg tablet 50 mg PO DAILY levothyroxine 88 mcg tablet 88 mcg PO DAILY@0600 pantoprazole 40 mg tablet,delayed release (DR/EC) 40 mg PO DAILY@0630 Se- 19 29 mg iron- 1 mg tablet 1 tab PO DAILY prednisone 10 mg tablet See Taper PO DIRECTED Qty: 20 0RF Taper: Prednisone 40 mg daily for 2 Days and 0 Hour 30 mg daily for 2 Days and 0 Hour 20 mg daily for 2 Days and 0 Hour 10 mg daily for 2 Days and 0 Hour Rx Instructions: see taper instructions albuterol sulfate [Ventolin HFA] 90 mcg/actuation HFA aerosol inhaler 1 inh inhalation QID PRN (Reason: shortness of breath or wheezing) Qty: 6.7 0RF oseltamivir [Tamiflu] 30 mg capsule 30 mg PO BID 4 Days Qty: 8 0RF albuterol sulfate 2.5 mg /3 mL (0.083 %) solution for nebulization 2.5 mg inhalation Q4H PRN (Reason: bronchospasm) Qty: 180 0RF Referrals: Diya Jang MD [Primary Care Provider, Internal Medicine] Stand Alone Forms: Work/School Release Print Language: Trinidadian
[2025-05-10 09:37] LABS: MANUAL DIFF FLAG NO
[2025-05-10 09:41] LABS: Hematocrit 34.5 % (37.0-47.0); Hemoglobin 11.6 g/dl (12.0-16.0); Imm Gran Abs Auto 0.11 X10*3/uL (0.00-0.03); Imm Gran Pct Auto 0.9 % (0.0-0.4); Lymphocytes Absolute Auto 1.5 X10*3/uL (1.2-4.9); Mean Corpuscular HGB Conc 33.6 g/dl (31.0-35.0); Mean Corpuscular Hemoglobin 28.6 pg (27.0-33.0); Mean Corpuscular Volume 85.0 fL (80.0-98.0); NRBC Abs Auto 0.000 X10*3/uL (0.0-0.012); NRBC Pct Auto 0.0 /100WBC (0.0-0.2); Platelet Count 244 X10*3/uL (160-400); Red Blood Count 4.06 X10*6/uL (4.20-5.50); White Blood Count 12.6 X10*3/uL (4.8-10.8)
--- OUTSIDE RECORDS SUMMARY | 2025-05-10 09:42 | XMS_ITS | Clinical Summary ---
Author Organization [facility] Address [address] [place] [phone] Phone Care Team Providers Care Sales Clerk Food Name Role Phone Diya Jang MD Primary Care Provider [phone] Allergies Active Allergy Reactions Criticality Noted Date Comments Iodine 06/22/2024 Shellfish-Derived Products 4 Medications albuterol HFA (PROVENTIL HFA;VENTOLIN HFA) 108 (90 Base) MCG/ACT inhaler Inhale 2 puffs 06/16/2022 Active Butalbital-Acet aminophen 50-325 MG tablet Take 1 tablet by mouth every 4 (four) hours Active fluticasone (FLONASE) 50 MCG/ACT nasal spray 2 sprays in each nostril once per day for 2 weeks. 11/15/2022 Active levothyroxine (SYNTHROID, LEVOTHROID) 88 MCG tablet Take 88 mcg by mouth in the morning. 06/01/2024 Active pantoprazole (PROTONIX) 40 MG EC tablet Take 40 mg by mouth in the morning. 03/28/2024 Active labetalol (NORMODYNE) 200 MG tablet Take 1 tablet (200 mg total) by mouth in the morning and 1 tablet (200 mg total) in the evening. 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 06/22/2024 Endometriosis 06/22/2024 Migraine 06/22/2024 Proteinuria 06/22/2024 Asthma 06/22/2024 Encounters Date Type Department Care Team Description 05/06/2025 3:45 PM EDT Office Visit [facility] [address] [phone] Loi Castellano MD Stage 3 chronic kidney disease, not otherwise specified (HCC) (Primary Dx); Chronic glomerulonephritis; Hypertension; Other proteinuria 05/03/2025 Orders Only [facility] [address] [phone] Loi Castellano MD from Last 3 Months Social History Tobacco Use Types Packs/Day Years Used Date Smoking Tobacco: Never Assessed Comments Unknown Sex and Gender Information Value Date Recorded Sex Assigned at Not on file Legal Sex Female 4:48 PM EST Gender Identity Not on file Sexual Orientation Not on file Last Filed Vital Signs Vital Sign Reading Time Taken Comments Blood Pressure 130/74 05/06/2025 3:53 PM EDT Pulse 85 05/06/2025 3:53 PM EDT Temperature - - Respiratory Rate - - Oxygen Saturation - - Inhaled Oxygen Concentration - - Weight 92.5 kg (204 lb) 05/06/2025 3:53 PM EDT Height - - Body Mass Index - - Plan of Treatment Upcoming Encounters Date Type Department Care Team (Late st Contact Info) Description 11/07/2025 2:30 PM EDT Office Visit [facility] [address] [phone] Loi Castellano MD [address] [phone] Health Maintenance Due Date Last Done Comments Hepatitis B Vaccine (1 of 3 - 19+ 3-dose series) 2001 Pneumococcal Vaccine: Peds ( 0 to 5 Years) and At-Risk Patients (6 to 49 Years) (1 of 2 - PCV) 2001 Influenza Vaccine (#1) 2025 06/12/2024, 2020 Procedures Procedure Name Priority Date/Time Associated Diagnosis Comments URINE ALBUMIN / CREATININE RATIO Routine 05/03/2025 12:04 PM EDT PTH, INTACT Routine 05/03/2025 11:58 AM EDT VITAMIN D 25 HYDROXY Routine 05/03/2025 11:58 AM EDT RENAL FUNCTION PANEL Routine 05/03/2025 11:58 AM EDT from Last 3 Months Results * (ABNORMAL) Urine Albumin / Creatinine Ratio (05/03/2025 12:04 PM EDT) Creatinine, Urine 41.0 mg/dL [facility] Microalbumin Urine Random 1,080.0(H ) 0.0 - 29.0 mg/L [facility] Microalbumin/Cre atinine Ratio 2,634(H) <30 mg/g creat [facility] 05/03/2025 12:0 4 PM EDT 05/03/2025 12:38 PM EDT us Loi Castellano MD LAB URINE ORDERABLES Final Resul t Performing Organization Address [facility] Co de Phone Number [facility] [address] [place] [address] * (ABNORMAL) Vitamin D 25 Hydroxy (05/03/2025 11:58 AM EDT) Vitamin D, 25-OH, Total 17.3(L) 30.0 - 80.0 ng/mL [facility] 05/03/2025 11:5 8 AM EDT 05/03/2025 12:38 PM EDT us Loi Castellano MD LAB BLOOD ORDERABLES Final Resul t [facility] [address] [place] [address] * (ABNORMAL) PTH, Intact (05/03/2025 11:58 AM EDT) Pathologist [facility] PTH 228.8(H) 18.5 - 88.0 pcg/mL [facility] 05/03/2025 11:5 8 AM EDT 05/03/2025 12:38 PM EDT Loi Castellano MD LAB BLOOD ORDERABLES Final Resul t [facility] [address] [place] [address] * (ABNORMAL) Renal Function Panel (05/03/2025 11:58 AM EDT) [facility] Sodium 137 133 - 145 mmol/L [facility] Potassium 4.1 3.5 - 5.5 mmol/L [facility] Chloride 106 96 - 110 mmol/L [facility] Bicarbonate (CO2) 24 21 - 32 mmol/L [facility] Anion Gap 7 3 - 11 [facility] Glucose 111(H) 70 - 100 mg/dL [facility] BUN 26(H) 5 - 25 mg/dL [facility] Creatinine Serum 2.42(H) 0.50 - 1.10 mg/dL [facility] eGFR 25(L) >=60 mL/min/1. 73m2 [facility] Comment:Calculation based on the Chronic Kidney Disease Epidemiology Collaboration (CKD-EPI) equation refit without adjustment for race. BUN/Creatinine Ratio 10.7 [facility] Albumin 3.3 3.2 - 5.0 g/dL [facility] Calcium 8.9 8.5 - 10.5 mg/dL [facility] Phosphorus 2.4(L) 2.5 - 4.5 mg/dL [facility] 05/03/2025 11:5 8 AM EDT 05/03/2025 12:38 PM EDT us Loi Castellano MD LAB BLOOD ORDERABLES Final Resul t [facility] [address] [place] [address] from Last [address] [place] [address] [facility] [place] [address] Care Teams Sales Clerk Food Relationship Specialty Start Date End Date Diya Jang MD [address] [place], [place] [address] [address] PCP - General Internal Medicine 06/22/24
[2025-05-10 09:45] LABS: INTERNATIONAL NORM RATIO 1.0 (0.9-1.1); Prothrombin Time 11.1 SEC (10.9-12.4)
[2025-05-10 09:47] LABS: D Dimer High Sensitivity 472 NG/ML
[2025-05-10 09:53] LABS: Alanine Aminotransferase 22 U/L (0-31); Albumin Level 4.1 g/dL (3.5-5.0); Alkaline Phosphatase 81 U/L (39-117); Anion Gap 11 (12-20); Aspartate Amino Transferase 20 U/L (5-31); Blood Urea Nitrogen 30 mg/dL (9-16); Calcium 9.0 mg/dL (8.4-10.2); Carbon Dioxide 25 mmol/L (22-29); Chloride 106 mmol/L (96-108); Creatinine Clr Calc Pharmacy 27.1; Estimated Glomerular Filt Rate 19; Magnesium 1.9 mg/dL (1.6-2.6); Potassium 4.1 mmol/L (3.3-5.1); Sodium 138 mmol/L (135-145); Total Protein 7.3 g/dL (6.5-8.0)
[2025-05-10 09:56] LABS: COVID-19 Test Negative (Negative); IDNOW Serial# 55D5AD1C; IDNOW Serial# 58CA691E; Influenza B2 Negative (Negative)
[2025-05-10 10:00] LABS: Troponin-I High Sensitivity < 2.7 ng/L (<3.5-17.0)
[2025-05-10 10:15] LABS: UPreg QC Valid YES
[2025-05-10 10:33] VITALS: BP 151/92; PULSE 85; RESP 20; TEMP 36.6; O2SAT 98
[2025-05-10 11:12] VITALS: BP 126/40; PULSE 84; RESP 22; TEMP 36.5; O2SAT 99
--- NOTE | 2025-05-10 11:25 | PC.NURSE ---
patient off unit for VQ scan
[2025-05-10 12:01] VITALS: PULSE 86; RESP 22; O2SAT 98
[2025-05-10 12:52] VITALS: BP 107/48; PULSE 84; RESP 18; O2SAT 98
[2025-05-10 13:19] VITALS: BP 107/48; PULSE 84; RESP 18; TEMP 36.6; O2SAT 98
== END 2025-05-10 13:20 | disposition home or self-care (01) ==
PROVIDERS: Physician Assistant; Emergency Provider Emergency Medicine Emergency Medical Services; PCP Internal Medicine
DX: J20.9 Acute bronchitis, unspecified (principal); N17.9 Acute kidney failure, unspecified; N18.9 Chronic kidney disease, unspecified; Z79.899 Other long term (current) drug therapy
CPT/HCPCS: 36415; 71045; 78580; 80053; 81025; 83605; 83735; 84484; 85025; 85379; 85610; 87040; 87502; 87635; 93005; 96361; 96374; 99284; 99285; A9540; J0696

== ENCOUNTER → 2025-05-10 09:02 | Outpatient (BNV) | payer OTHER, SELFPAY | PROVIDERS: Emergency Provider Emergency Medicine Emergency Medical Services; PCP Internal Medicine; Visit Provider Internal Medicine Cardiovascular Disease | DX: J06.9 Acute upper respiratory infection, unspecified (principal) | CPT/HCPCS: 93010 ==

== ENCOUNTER → 2025-05-10 10:29 | Outpatient (BNV) | payer OTHER, SELFPAY | PROVIDERS: Emergency Provider Emergency Medicine Emergency Medical Services; PCP Internal Medicine; Visit Provider Radiology Diagnostic Ultrasound | DX: R07.81 Pleurodynia (principal); R05.9 Cough, unspecified | CPT/HCPCS: 71045; 78580 ==